=== PATIENT | female | born 1960 | race Two or more races ===

== ENCOUNTER 2024-03-30 19:22 | Emergency (ER) | payer MEDICAID ==
[~2024-03-30] VITALS: Ht 152.4 cm; Wt 75.0 kg
[2024-03-30 20:18] LABS: Urine Bacteria None Seen /hpf (None Seen); Urine Blood Negative /uL (Negative); Urine Clarity Clear (Clear); Urine Color Light-Yellow (Yellow); Urine Protein, UAD Negative (Negative); Urine Specific Gravity 1.021 (1.001-1.035); Urine Squamous Epithelial Cell FEW /hpf (<5); Urine Urobilinogen Normal (Negative); Urine WBC 2 /HPF (0-5); Urine pH 5.5 (5.0-9.0)
[2024-03-30 20:40] LABS: COVID19 ANTIGEN SOFIA FIA NEGATIVE (NEGATIVE)
[2024-03-30 20:41] LABS: Rapid Influenza A Negative (Negative); Rapid Influenza B Negative (Negative)
[2024-03-30] MEDS ORDERED: NITROFURANTOIN 100 mg CAP PO ONE (21:45)
[2024-03-30 23:40] VITALS: PULSE 115; RESP 20; TEMP 98.3; O2SAT 94
[2024-03-30] MEDS: ACETAMINOPHEN 325 MG TAB PO ONE (23:45)
[2024-03-30] MEDS: cefTRIAXone SOD 1,000 MG VL IM ONE (23:55)
[2024-03-31] MEDS ORDERED: ACET500T58 PO (00:23)
[2024-03-31] MEDS ORDERED: ZOFR4T PO (00:23)
[2024-03-31] MEDS ORDERED: NITR-87 PO (00:23)
--- NOTE | 2024-03-31 00:23 | ED.PDOC ---
History of Present Illness HPI Comments This patient is a 63-year-old morbidly obese female who arrives to the ED today with complaints of flu-like symptoms including body aches, fever as well as back pain concerns for the past two days. Patient believes she may have a urinary tract infection as well. Patient denies any recent travel or new food sources. At arrival, patient was febrile, tachycardic and hypertensive. Chief Complaint: Flu like Time Seen by MD: 19:53 Reviewed Notes: Nurses Notes Allergies: Coded Allergies: No Known Drug Allergy (Verified Allergy, Unknown, 03/30/24) Information Source: Patient Mode of Arrival: Ambulatory Severity: Moderate Timing: Days Duration: Since onset Prehospital treatment: None Past Medical History PAST MEDICAL HISTORY: Denies Surgical History: Denies all surgeries GREEN MARKETER History: No Pertinent GREEN MARKETER History Family History Family History: Reviewed,noncontributory to illness, No family hx of Cancer, No family hx of DM, No family hx of Heart janusz, No family hx of HTN, No family hx ofKidney janusz, No family hx of Liver janusz, No family hx of Lung janusz, No family hx of Stroke Social History Smoker: Non-Smoker Alcohol: Denies ETOH Use Drugs: Denies Drug Use Lives In: Home Constitutional: reports: fatigue, fever, weakness; denies: chills, diaphoresis, malaise, sweats, others EENTM: denies: blurred vision, double vision, ear bleeding, ear discharge, ear drainage, ear pain, ear ringing, eye pain, eye redness, hearing loss, mouth pain, mouth swelling, nasal discharge, nose bleeding, nose congestion, nose pain, photophobia, tearing, throat pain, throat swelling, voice changes, others Respiratory: denies: cough, hemoptysis, orthopnea, SOB at rest, shortness of breath, SOB with excertion, stridor, wheezing, others Cardiovascular: denies: chest pain, dizzy spells, diaphoresis, Dyspnea on exertion, edema, irregular heart beat, left arm pain, lightheadedness, palpitations, PND, syncope, others Gastrointestinal: denies: abdomen distended, abdominal pain, blood streaked bowels, constipated, diarrhea, dysphagia, difficulty swallowing, hematemesis, melena, nausea, poor appetite, poor fluid intake, rectal bleeding, rectal pain, vomiting, others Genitourinary: denies: abnormal vagina bleeding, burning, dyspareunia, dysuria, flank pain, frequency, hematuria, incontinence, pain, , vagina discharge, urgency, others Neurological: denies: dizziness, fainting, headache, left sided numbness, left sided weakness, numbness, paresthesia, pre-existing deficit, right sided numbness, right sided weakness, seizure, speech problems, tingling, tremors, weakness, others Musculoskeletal: reports: back pain; denies: gout, joint pain, joint swelling, muscle pain, muscle stiffness, neck pain, others Integumetry: denies: bruises, change in color, change in hair/nails, dryness, laceration, lesions, lumps, rash, wounds, others Allergic/Immunocompromised: denies: Difficulty Healing, Frequent Infections, Hives, Itching, others Hematologic/Lymphatic: denies: anemia, blood clots, easy bleeding, easy bruising, swollen glands, others Endocrine: denies: excessive hunger, excessive sweating, excessive thirst, excessive urination, flushing, intolerance to cold, intolerance to heat, unexplained weight gain, unexplained weight loss, others Psychiatric: denies: anxiety, bipolar disorder, depression, hopeless, panic disorder, schizophrenia, sleepless, suicidal, others Physical Exam General Appearance: Moderate Distress (Patient presents as a ugbh-gp-lgwundehoq ill 63-year-old female.), Obese HEENT: Normal ENT Inspection, Pharynx Normal, TMs Normal Neck: Full Range of Motion, Non-Tender, Normal, Normal Inspection Respiratory: Chest Non-Tender, Lungs Clear, No Accessory Muscle Use, No Respiratory Distress, Normal Breath Sounds Cardiovascular: No Edema, No JVD, No Murmur, No Gallop, Normal Peripheral Pulses, Regular Rate/Rhythm Breast Exam: Deferred Gastrointestinal: No Organomegaly, Non Tender, No Pulsatile Mass, Normal Bowel Sounds, Soft Genitalia: Deferred Pelvic: Deferred Rectal: Deferred Extremities: Normal capillary refill, Normal inspection, Normal range of motion, Non-tender Musculoskeletal : Location: Bilateral Extremity Location: Back (Diffuse low back tenderness to palpation. No signs of trauma. Pain is described as achy. No CVA tenderness) Apperance: Normal Neurologic: Alert, No Motor Deficits, Normal Affect, Normal Mood, No Sensory Deficits Cerebellar Function: Normal Reflexes: Normal Skin: Dry, Normal Color, Warm Lymphatic: No Adenopathy Was a procedure done? Was a procedure done?: No Differential Dx Considerations may include: UTI, COVID-19, influenza a/B, viral illness X-Ray, Labs, Meds, VS Vital Signs Date Time Temp Pulse Resp B/P (MAP) Pulse Ox O2 Delivery O2 Flow Rate FiO2 03/30/24 23:40 115 20 94 Room Air* 0 21 03/30/24 23:40 98.3 115 20 166/96 (119) 94 98.3 03/30/24 19:35 101.8 129 20 150/105 (120) 95 03/30/24 19:35 18 95 Room Air 0 Lab Test 03/30/24 19:53 03/30/24 19:45 Range/Units Urine Color Light-yellow Yellow Urine Clarity Clear Clear Urine pH 5.5 5.0-9.0 Urine Specific [place] 1.021 1.001-1.035 Urine Protein Negative Negative Urine Ketones Negative Negative Urine Blood Negative Negative /uL Urine Nitrite Negative Negative Urine Bilirubin Negative Negative Urine Urobilinogen Normal Negative mg/dL Urine Leukocyte Esterase 1+ Negative /uL Urine RBC 1 0 - 4 /hpf Urine Microscopic WBC 2 0-5 /HPF Urine Squamous Epithelial Cells Few <5 /hpf Urine Bacteria None seen None Seen /hpf Urine Glucose Normal Normal mg/dL Influenza Type A Antigen Negative Negative Influenza Type B Antigen Negative Negative SARS-CoV-2 Antigen (Rapid) Negative NEGATIVE Current Medications Medications (Trade) Dose Ordered Sig/Michael Route Start Time Stop Time Status Last Admin Acetaminophen (Tylenol Tablet) 1,000 mg ONCE ONCE PO 03/30/24 21:45 03/30/24 21:46 DC 03/30/24 23:45 Ceftriaxone Sodium (Rocephin) 1,000 mg ONCE ONCE IM 03/31/24 00:00 03/31/24 00:01 DC 03/30/24 23:55 X-Ray, Labs, Meds, VS Comment All studies performed the ED were evaluated by me personally. Swabs studies were unremarkable for any COVID or influenza. Urine revealed a mild urinary tract infection. I believe the patient is suffering from a viral illness as well as her urinary tract infection. Advised patient utilize antibiotics as directed as well as additional medication as needed. Good hydration and healthy nutrition throughout. Time of 1ST Reevaluation: 00:20 Reevaluation 1ST: Improved Consultation: PCP Patient Education/Counseling: Diagnosis, Treatment Family Education/Counseling: Diagnosis, Treatment Departure 1 Departure Time of Disposition: 00:21 Impression: Primary Impression: Viral illness Additional Impression: UTI (urinary tract infection) Disposition: HOME / SELF CARE / HOMELESS Condition: Stable Additional Instructions: Advised patient utilize antibiotics as directed until completion as well as additional medication as needed. Patient should practice good hydration and healthy nutrition throughout illness event. e-Prescriptions Ondansetron Odt 4MG Tab (ZOFRAN PO) 4 Mg Tb 4 MG PO Q6HP PRN, #15 TAB ODT TAB-DISSOLVE IN MOUTH, THEN SWALLOW Prov: YULISA COLON PAC 03/31/24 Acetaminophen (Acetaminophen) 500 Mg Tab 500 MG PO Q4HP PRN, #30 TAB Prov: YULISA COLON PAC 03/31/24 Nitrofurantoin Monohydrate Mac (Macrobid) 100 Mg Cap 100 MG PO BID for 5 Days, #10 CAP Prov: YULISA COLON 03/31/24 Discharged With: Self, Friend Critical Care Note Critical Care Time?: No Stability Stability form required: No Heart Score Heart Score: Heart Score Response (Comments) Value History N/A 0 EKG N/A 0 Age N/A 0 Risk Factors N/A 0 Troponin N/A 0 Total 0 YULISA COLON PAC Mar 31, 2024 00:23
[2024-03-31 01:11] VITALS: BP 147/83; PULSE 109; RESP 18; O2SAT 96
[2024-03-31] MEDS: cloNIDine HCL 0.1 MG TAB PO ONE (01:11)
== END 2024-03-31 01:12 | disposition home or self-care (01) ==
LOC: ER 19:22
DX: B34.9 Viral infection, unspecified (principal); N39.0 Urinary tract infection, site not specified; Z20.822 Contact with and (suspected) exposure to COVID-19
CPT/HCPCS: 36415; 81001; 87426; 87804; 96372; 99283; J0696

== ENCOUNTER 2024-05-30 01:53 | Inpatient (IN) | payer MEDICAID ==
[~2024-05-30] VITALS: Ht 154.9 cm; Wt 70.6 kg
[2024-05-30] VITALS (8 sets, daily range): BP systolic 91–146; BP diastolic 36–78; PULSE 68–93; RESP 12–18; TEMP 97–98.1; O2SAT 92–98
[~2024-05-30 01:53] MED LIST: ACET500T58 PO; NITR-87 PO; ZOFR4T PO
--- NOTE | 2024-05-30 02:04 | ECG ---
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
--- NOTE | 2024-05-30 02:15 | ED.PDOC ---
HPI Comments 63 year old female presents to the ED via EMS with a chief complaint of chest pain onset today (05/30/24) around 01:00. Patient states she was asleep, woke up due to chest pain described as a pressure/burning sensation radiating to epigastric region as well as shortness of breath and nausea. Per EMS, upon arrival patient was tachycardiac 105 bpm, hypertensive 143/99, blood sugar 121. Patient experienced MD December 2023, states pain is similar. PMHx HTN, CHF, MD. Denies headache, blurry vision, vomiting, diarrhea, constipation, cough, congestion, fevers, chills. No other symptoms or modifying factors present at this time. Chief Complaint: Chest Pain Time Seen by MD: 02:06 Reviewed Notes: Medications, Allergies Allergies: Coded Allergies: No Known Drug Allergy (Verified Allergy, Unknown, 03/30/24) Home Meds Active Scripts Ondansetron Odt 4MG Tab (ZOFRAN PO) 4 Mg Tb, 4 MG PO Q6HP PRN, #15 TAB ODT TAB-DISSOLVE IN MOUTH, THEN SWALLOW Prov:YULISA COLON PAC 03/31/24 Acetaminophen (Acetaminophen) 500 Mg Tab, 500 MG PO Q4HP PRN, #30 TAB Prov:YULISA COLON PAC 03/31/24 Nitrofurantoin Monohydrate Mac (Macrobid) 100 Mg Cap, 100 MG PO BID for 5 Days, #10 CAP Prov:YULISA COLON PAC 03/31/24 Information Source: Patient, Emergency Med Personnel Mode of Arrival: EMS Severity: Moderate Timing: Hours Duration: Since onset Prehospital treatment: None Location: Chest (L) Radiation: Abdomen (epigastric ) Quality: Pressure, Burning Onset: While Asleep Cardiac Risk Factors: HTN PE Risk Factors: None History of: Similar pain in past, MD Modifying Factors: Nothing Associated Signs and Symptoms: SOB, Abdominal Pain, N/V Vital Signs Vital Signs Date Time Temp Pulse Resp B/P (MAP) Pulse Ox O2 Delivery O2 Flow Rate FiO2 05/30/24 03:58 79 05/30/24 03:30 98.0 14 138/89 (105) 97 98.0 Physical Exam General: Awake, alert and oriented. No acute distress. Skin: Skin in warm, dry and intact without rashes or lesions. HEENT: The head is normocephalic and atraumatic. Conjunctivae are clear without exudates or hemorrhage. Sclera is non-icteric. Neck: Normal range of motion. No JVD. Cardiac: Regular rate Respiratory: No signs of respiratory distress. No Stridor. Extremities: Upper and lower extremities are atraumatic in appearance without deformity. Neurological: The patient is awake, alert and oriented to person, place, and t carie with normal speech. Speech is clear. There is no facial asymmetry. Psychiatric: Appropriate mood and affect. Good judgement and insight. Review of Systems: As stated HPI Past Medical History PAST MEDICAL HISTORY: CHF, HTN, MD Surgical History: Denies all surgeries AIR BATTLE MANAGER History: No Pertinent AIR BATTLE MANAGER History Family History Family History: Reviewed,noncontributory to illness, No family hx of Cancer, No family hx of DM, No family hx of Heart ajnusz, No family hx of HTN, No family hx ofKidney janusz, No family hx of Liver janusz, No family hx of Lung janusz, No family hx of Stroke Social History Smoker: Non-Smoker Alcohol: Denies ETOH Use Drugs: Denies Drug Use Lives In: Home EKG EKG : Pulse Rate (adult): 89 [place]: RAD Cardiac Rhythm: NSR ST: Nonsp Comments No STEMI Was a procedure done? Was a procedure done?: No CP Differential Dx Differential Diagnosis: Other (Differential diagnoses considered include acute ischemic coronary syndrome, aortic dissection, cardiac tamponade, mediastinitis, pulmonary embolus, pneumothorax, tension pneumothorax, esophageal rupture, coronary artery vasospasm, myocarditis, pericarditis, pneumonia, pulmonary edema, esophageal tear, pancreatitis, aortic stenosis, dilated cardiomyopathy, hypertrophic cardiomyopathy, mitral valve prolapse, malignancy, pleuritis, pneumomediastinum, primary pulmonary hypertension, cholecystitis, esophageal spasm, esophagus, gastritis, GERD, peptic ulcer disease, costochondritis, fibromyalgia, rib fracture, herpes zoster, radicular syndromes, thoracic outlet syndrome, somatization.) X-Ray, Labs, Meds, VS Vital Signs Date Time Temp Pulse Resp B/P (MAP) Pulse Ox O2 Delivery O2 Flow Rate FiO2 05/30/24 03:58 79 05/30/24 03:30 98.0 79 14 138/89 (105) 97 98.0 05/30/24 03:29 88 17 18/89 05/30/24 02:48 95 05/30/24 02:15 89 05/30/24 01:55 89 05/30/24 01:55 98.0 88 22 143/99 (114) 95 98.0 Lab Test 05/30/24 03:10 05/30/24 02:07 Range/Units Troponin I High Sensitivity Pending 31 </=34 ng/L White Blood Count 7.7 4.4-10.8 10^3/uL Red Blood Count 4.38 4.0-5.20 10^6/uL Hemoglobin 13.9 12.2-16.2 g/dL Hematocrit 41.5 36.0-46.0 % Mean Corpuscular Volume 94.6 80.0-100.0 fL Mean Corpuscular Hemoglobin 31.7 28.0-32.0 pg Mean Corpuscular Hemoglobin Concent 33.5 32.0-36.0 g/dL Red Cell Distribution Width 14.2 11.8-14.3 % Platelet Count 230 140-450 10^3/uL Mean Platelet Volume 7.5 6.9-10.8 fL Neutrophils (%) (Auto) 65.9 37.0-80.0 % Lymphocytes (%) (Auto) 22.0 10.0-50.0 % Monocytes (%) (Auto) 7.3 0.0-12.0 % Eosinophils (%) (Auto) 4.0 0.0-7.0 % Basophils (%) (Auto) 0.8 0.0-2.0 % Neutrophils # (Auto) 5.1 1.6-8.6 10 ^3/uL Lymphocytes # (Auto) 1.7 0.4-5.4 10 ^3/uL Monocytes # (Auto) 0.6 0-1.3 10 ^3/uL Eosinophils # (Auto) 0.3 0-0.8 10 ^3/uL Basophils # (Auto) 0.1 0-0.2 10 ^3/uL Nucleated Red Blood Cells 0.0 % Sodium Level 139 136-145 mmol/L Potassium Level 4.4 3.5-5.1 mmol/L Chloride Level 106 98-107 mmol/L Carbon Dioxide Level 26 20-31 mmol/L Anion Gap 7 5-15 Blood Urea Nitrogen 17 9-23 mg/dL Creatinine 0.84 0.550-1.02 mg/dL Glomerular Filtration Rate Calc 79 >90 mL/min BUN/Creatinine Ratio 20.2 H 10.0-20.0 Serum Glucose 121 H 74-106 mg/dL Calcium Level 9.5 8.7-10.4 mg/dL Total Bilirubin 0.2 0.2-1.0 mg/dL Aspartate Amino Transferase (AST) 13 13-40 U/L Alanine Aminotransferase (ALT) 15 7-40 U/L Alkaline Phosphatase 124 H 46-116 U/L B-Type Natriuretic Peptide Pending Total Protein 6.9 5.7-8.2 g/dL Albumin 4.2 3.2-4.8 g/dL Current Medications Medications (Trade) Dose Ordered Sig/Michael Route Start Time Stop Time Status Last Admin Aspirin 324 mg ONCE ONCE PO 05/30/24 02:15 05/30/24 02:17 DC 05/30/24 03:26 Morphine Sulfate 2 mg ONCE ONCE IV 05/30/24 02:15 05/30/24 02:17 DC 05/30/24 03:29 Ondansetron HCl (Zofran) 4 mg ONCE ONCE IV 05/30/24 03:00 05/30/24 03:01 DC 05/30/24 03:27 Images Reviewed?: Images reviewed and evaluated by me (Independent interpretation of chest x-ray: No acute disease) Time of 1ST Reevaluation: 02:36 Reevaluation 1ST: Unchanged Patient Education/Counseling: Other (Need for admission) Family Education/Counseling: No Family Present Departure 1 Departure Time of Disposition: 04:10 Impression: Primary Impression: Chest pain Disposition: ADMITTED INPATIENT Condition: Stable Comments 63-year-old female with coronary artery disease presents with the chest pain. Patient admitted to hospitalist service for further treatment, evaluation and monitoring. Extensive evaluation was performed in attempt to identify or rule out: (See differential diagnosis section) The following tests were ordered, and results were reviewed by me and discussed with patient: (See diagnostic results section) The following test were independently interpreted by me: EKG, chest x-ray I reviewed and agreed with the following test results read by other providers: N/A I reviewed the following notes from the pt's past medical encounters: Visit 03/30/2024 for viral illness Additional information was gathered from interviewing the following independent historians: EMS personnel Discussion of management or test interpretation with external physician/other qualified health senior caregiver: N/A Addressed an acute or chronic illness that poses a threat to life or bodily function: Angina, coronary artery disease Decision regarding hospitalization or escalation of hospital level of care: Risk and benefits of admission for further treatment of patient's condition was considered. Due to patient's current clinical condition, high risk of decline and poor outcome if discharged and need for further inpatient management and monitoring, patient will be admitted to the hospital. Drug therapy requiring intensive monitoring for toxicity: N/A Parenteral controlled substances: IV morphine Decision regarding elective major surgery with identified patient or procedure risk factors: N/A Decision regarding emergency major surgery: N/A Decision not to resuscitate or to de-escalate care because of poor prognosis: N/A Diagnosis or treatment significantly limited by social determinants of health: N/A Critical Care Note Critical Care Time?: No Stability Stability form required: No Heart Score Heart Score: Heart Score Response (Comments) Value History Highly Suspicious 2 EKG Repolarization Disturb 1 Age 45-64 1 Risk Factors >3 or Hx ASHD 2 Troponin Normal limit 0 Total 6 I personally scribed for SHUN LAURENT MD ([email or web address]) on 05/30/24 at 02:15. Electronically submitted by Brooke Garcia ([email or web address]). SHUN LAURENT MD May 30, 2024 02:15
[2024-05-30 02:35] LABS: Basophils # (auto) 0.1 10 ^3/uL (0-0.2); Basophils % (auto) 0.8 % (0.0-2.0); Eosinophils # (auto) 0.3 10 ^3/uL (0-0.8); Hematocrit 41.5 % (36.0-46.0); Hemoglobin 13.9 g/dL (12.2-16.2); Lymphocytes # (auto) 1.7 10 ^3/uL (0.4-5.4); Mean Corpuscular Hemoglobin 31.7 pg (28.0-32.0); Mean Corpuscular Hgb Conc. 33.5 g/dL (32.0-36.0); Mean Corpuscular Volume 94.6 fL (80.0-100.0); Monocytes # (auto) 0.6 10 ^3/uL (0-1.3); Monocytes % (auto) 7.3 % (0.0-12.0); Neutrophils # (auto) 5.1 10 ^3/uL (1.6-8.6); Neutrophils % (auto) 65.9 % (37.0-80.0); Platelet Count (auto) 230 10^3/uL (140-450); Red Blood Cells 4.38 10^6/uL (4.0-5.20); Red Cell Distribution Width 14.2 % (11.8-14.3); White Blood Cell 7.7 10^3/uL (4.4-10.8)
[2024-05-30 03:04] LABS: Alanine Aminotransferase 15 U/L (7-40); Albumin 4.2 g/dL (3.2-4.8); Anion Gap 7 (5-15); BUN/Creatinine Ratio 20.2 (10.0-20.0); Blood Urea Nitrogen 17 mg/dL (9-23); Calcium 9.5 mg/dL (8.7-10.4); Carbon Dioxide 26 mmol/L (20-31); Chloride 106 mmol/L (98-107); Potassium 4.4 mmol/L (3.5-5.1); Sodium 139 mmol/L (136-145); Total Protein 6.9 g/dL (5.7-8.2)
[2024-05-30 03:06] LABS: Alkaline Phosphatase 124 U/L (46-116); Aspartate Aminotransferase 13 U/L (13-40); Bilirubin, Total 0.2 mg/dL (0.2-1.0); Glucose 121 mg/dL (74-106)
[2024-05-30] MEDS: ASPirin 81 mg TAB PO ONE (03:26)
[2024-05-30] MEDS: ONDANSETRON HCL 4 MG/2 ML VIAL IV ONE (03:27)
[2024-05-30] MEDS: MORPHINE SULFATE INJ 2 MG/ml SYRG IV ONE (03:29)
--- NOTE | 2024-05-30 04:41 | DVH ---
CHEST RADIOGRAPH Indication: cp Technique: Single frontal view of the chest was obtained Comparison: None FINDINGS: Lines and Tubes: None Lungs: No focal consolidation. Pleura: No effusion. No pneumothorax. Cardiomediastinal contours: Unremarkable Bones: No acute osseous abnormality. IMPRESSION: 1. No acute cardiopulmonary disease.
[2024-05-30] MEDS ORDERED: NITROGLYCERIN 0.4 MG SL TAB SL PRN (05:15)
[2024-05-30] MEDS ORDERED: ALBUTEROL SULF 2.5 MG/0.5ML(0.5%) NEB SOLN NEB PRN (05:15)
[2024-05-30] MEDS ORDERED: ACETAMINOPHEN 325 MG TAB PO PRN (05:15)
[2024-05-30] MEDS ORDERED: MORPHINE SULFATE INJ 2 MG/ml SYRG IV PRN (05:15)
--- NOTE | 2024-05-30 05:22 | DVHHP2 ---
History of Present Illness Reason for Visit: Chest pain History of Present Illness 63-year-old female presents for evaluation of chest pain. Patient reports waking up today at one in the morning with substernal/epigastric pressure-like pain with associated shortness for breath and nausea. Denies cough or fever. Patient currently rates the pain at 6/10 intensity. Reports having an IN last year and states the symptoms are similar to that episode. Denies any other acute complaints at the moment. Past Medical History IN, hypertension, CHF Past Surgical History Denies Family History Denies Smoke: No ALCOHOL: none Drugs: None Lives: with Family Review of Systems Review of Systems Review of systems are currently negative otherwise addressed in HPI. Allergies: Coded Allergies: No Known Drug Allergy (Verified Allergy, Unknown, 03/30/24) Medications Current Medications Medications Dose Ordered Sig/Michael Route Start Time Stop Time Status Last Admin Dose Admin Aspirin 81 mg DAILY PO 05/30/24 10:00 UNV Atorvastatin Calcium 40 mg HS PO 05/30/24 22:00 UNV Furosemide 40 mg DAILY PO 05/30/24 10:00 UNV Albuterol 2.5 mg Q6HPRN PRN NEB 05/30/24 05:15 UNV Metoprolol Succinate 50 mg DAILY PO 05/30/24 10:00 UNV Lisinopril 5 mg DAILY PO 05/30/24 10:00 UNV Pantoprazole Sodium 40 mg DAILY@0600 PO 05/30/24 06:00 UNV Ondansetron HCl 4 mg Q4HP PRN IV 05/30/24 05:15 UNV Enoxaparin Sodium 40 mg DAILY SC 05/30/24 10:00 UNV Acetaminophen 650 mg Q6HP PRN PO 05/30/24 05:15 UNV Nitroglycerin 0.4 mg Q5MINP PRN SL 05/30/24 05:15 UNV Morphine Sulfate 2 mg Q30M PRN IV 05/30/24 05:15 UNV Exam Vital Signs Vital Signs Date Time Temp Pulse Resp B/P (MAP) Pulse Ox O2 Delivery O2 Flow Rate FiO2 05/30/24 04:45 68 18 96 Nasal Cannula* 3 32 05/30/24 03:30 98.0 138/89 (105) 98.0 Exam Gen: 63-year-old female in mild distress, obese Skin: Warm, dry, normal color and texture, no rash. HEENT: Normocephalic atraumatic, mucous membranes moist and pink. Neck: Cervical and supraclavicular nodes normal without enlargement, trachea is midline, thyroid gland is normal without masses. Pulmonary: Clear to auscultation and percussion bilaterally. Cardiac: Regular rate and rhythm. No murmur Abdomen: Soft, nontender, nondistended, bowel sounds present all 4 quadrants, no guarding, no rigidity, no organomegaly. Extremities: No cyanosis, clubbing, no edema Neuro: Cranial nerves II through XII grossly intact, normal affect and speech, no focal motor deficits. Labs/Xrays ORDERING PHYSICIAN: SHUN LAURENT MD PROCEDURE(s): CXR1 - CHEST XRAY 1 VIEW REASON: cp ORDER NUMBER(s): [id number], ACCESSION NUMBER(s): [id number] CHEST RADIOGRAPH Indication: cp Technique: Single frontal view of the chest was obtained Comparison: None FINDINGS: Lines and Tubes: None Lungs: No focal consolidation. Pleura: No effusion. No pneumothorax. Cardiomediastinal contours: Unremarkable Bones: No acute osseous abnormality. IMPRESSION: 1. No acute cardiopulmonary disease. Labs Test 05/30/24 03:10 05/30/24 02:07 Range/Units Troponin I High Sensitivity 28 </=34 ng/L White Blood Count 7.7 4.4-10.8 10^3/uL Red Blood Count 4.38 4.0-5.20 10^6/uL Hemoglobin 13.9 12.2-16.2 g/dL Hematocrit 41.5 36.0-46.0 % Mean Corpuscular Volume 94.6 80.0-100.0 fL Mean Corpuscular Hemoglobin 31.7 28.0-32.0 pg Mean Corpuscular Hemoglobin Concent 33.5 32.0-36.0 g/dL Red Cell Distribution Width 14.2 11.8-14.3 % Platelet Count 230 140-450 10^3/uL Mean Platelet Volume 7.5 6.9-10.8 fL Neutrophils (%) (Auto) 65.9 37.0-80.0 % Lymphocytes (%) (Auto) 22.0 10.0-50.0 % Monocytes (%) (Auto) 7.3 0.0-12.0 % Eosinophils (%) (Auto) 4.0 0.0-7.0 % Basophils (%) (Auto) 0.8 0.0-2.0 % Neutrophils # (Auto) 5.1 1.6-8.6 10 ^3/uL Lymphocytes # (Auto) 1.7 0.4-5.4 10 ^3/uL Monocytes # (Auto) 0.6 0-1.3 10 ^3/uL Eosinophils # (Auto) 0.3 0-0.8 10 ^3/uL Basophils # (Auto) 0.1 0-0.2 10 ^3/uL Nucleated Red Blood Cells 0.0 % Sodium Level 139 136-145 mmol/L Potassium Level 4.4 3.5-5.1 mmol/L Chloride Level 106 98-107 mmol/L Carbon Dioxide Level 26 20-31 mmol/L Anion Gap 7 5-15 Blood Urea Nitrogen 17 9-23 mg/dL Creatinine 0.84 0.550-1.02 mg/dL Glomerular Filtration Rate Calc 79 >90 mL/min BUN/Creatinine Ratio 20.2 H 10.0-20.0 Serum Glucose 121 H 74-106 mg/dL Calcium Level 9.5 8.7-10.4 mg/dL Total Bilirubin 0.2 0.2-1.0 mg/dL Aspartate Amino Transferase (AST) 13 13-40 U/L Alanine Aminotransferase (ALT) 15 7-40 U/L Alkaline Phosphatase 124 H 46-116 U/L B-Type Natriuretic Peptide 34.48 0-100 pg/mL Total Protein 6.9 5.7-8.2 g/dL Albumin 4.2 3.2-4.8 g/dL Assessment/Plan Assessment/Plan Assessment Chest pain rule out ACS Hypertension History of IN Plan Admit the patient to telemetry to the hospitalist ACS protocol Resume home medications Continue treatment per orders. Plan discussed with: Patient My Orders Orders - NIKHIL JACINTO Procedure Category Date Status Time Aspirin Tablet PHA 05/30/24 Logged 10:00 Atorvastatin (Lipitor) PHA 05/30/24 Logged 22:00 Furosemide Tablet PHA 05/30/24 Logged (Lasix Tablet) 10:00 Albuterol Medneb PHA 05/30/24 Logged (Ventolin Medneb) 05:15 Metoprolol Xl PHA 05/30/24 Logged Succinate (Toprol Xl) 10:00 Lisinopril Tablet PHA 05/30/24 Logged (Zestril Tablet) 10:00 * Cardiology Consult CONS 05/30/24 Transmitted 05:11 Thyroid Stimulating LAB 05/30/24 Logged Hormone 05:11 Lipid Panel LAB 05/30/24 Logged 05:11 Pantoprazole Tablet PHA 05/30/24 Logged (Protonix Tablet) 06:00 Admit ADMIT 05/30/24 Transmitted 05:11 Ondansetron Hcl PHA 05/30/24 Logged (Zofran) 05:15 Enoxaparin Sodium PHA 05/30/24 Logged (Lovenox) 10:00 Cardiac DIET 05/30/24 Transmitted Diet-2gna,Lofat,Lochol Breakfast Echo 2d Mode Cardiac US 05/30/24 Logged DOP 05:11 Condition: Fair [facility] 05/30/24 In Process 05:11 Acetaminophen Tablet [facility] 05/30/24 Logged (Tylenol Tablet) 05:15 Bedrest With Bathroom [facility] 05/30/24 In Process Privileg 05:11 Nitroglycerin [facility] 05/30/24 Logged Sublingual (Ntrostat 05:15 Morphine Sulfate PHA 05/30/24 Logged Injection 05:15 Stat Ekg For Chest [facility] 05/30/24 In Process Pain 05:11 Notify Md Of Changes [facility] 05/30/24 In Process From Base 05:11 Applied Research Director For [facility] 05/30/24 In Process 24 Hours 05:11 Emergency Dysrhythmia [facility] 05/30/24 In Process Protocol 05:11 Rhythm Strips Once [facility] 05/30/24 In Process Every Shift 05:11 Oxygen By Nasal RT 05/30/24 Transmitted Cannula 05:11 Date of Service: May 30, 2024 Billing Provider: NIKHIL JACINTO Common Visit Codes: [id number] INP/OBS CARE (HIGH) NIKHIL JACINTO May 30, 2024 05:22
[2024-05-30] MEDS: PANTOPRAZOLE 40 MG TAB PO SCH (06:32)
--- NOTE | 2024-05-30 06:44 | ECG ---
[facility] Test Date: 2024-05-30 Test Time: 02:48:56 Pat Name: PAXTON RODRIGUEZ Department: ED Room: 0280T Gender: F Clinic Physician: ER : [id number] Requested By: EMERGENCY EMERGENCY Order Number: [id number] Reading MD: Emory Car Measurements Intervals Rowe Rate: 95 P: 90 MA: 144 QRS: 103 QRSD: 92 T: 66 QT: 394 QTc: 496 Interpretive Statements Sinus rhythm Multiple ventricular premature complexes Right axis deviation ST elevation, consider inferior injury Borderline prolonged QT interval Electronically Signed On 05-31-2024 13:44:01 PDT by Emory Car Please click the below link to view image of tracing.
[2024-05-30 06:46] LABS: LDL Cholesterol 105 mg/dL (< 100); Triglycerides 156 mg/dL (< 150)
[2024-05-30 06:47] LABS: Cholesterol 173 mg/dL (< 200); HDL Cholesterol 51 mg/dL (40-59)
[2024-05-30] MEDS: ASPirin 81 mg TAB PO SCH (09:19)
[2024-05-30] MEDS: ENOXAPARIN SOD 40 MG/0.4 ML SYRINGE SC SCH (09:20)
[2024-05-30] MEDS: LISINOPRIL 5 MG TAB PO SCH (09:21)
[2024-05-30] MEDS: METOPROLOL SUCCINATE XL 50 MG TAB PO SCH (09:22)
[2024-05-30] MEDS: FUROSEMIDE 40 MG TAB PO SCH (09:23)
[2024-05-30] MEDS: ONDANSETRON HCL 4 MG/2 ML VIAL IV PRN (09:23)
--- NOTE | 2024-05-30 10:08 | DVHINCON2 ---
Date Seen: May 30, 2024 Referring Physician KOKO Iniguez Reason for Consultation Chest pain History of Present Illness This is a 63-year-old female patient who presents to the emergency room with chief complaint of abdominal pain and chest pain. The patient reports her symptoms began at approximately 1:00 a.m. this morning. She reports feeling an unprovoked, pressure-like pain to her epigastric area. She states that the pain radiated to her chest. Associated symptoms include shortness of breath and lightheadedness. Initial twelve lead electrocardiogram reveals normal sinus rhythm with PACs and PVCs and nonspecific ST segment changes to septal leads. Initial troponin level of 31ng/L with flat trend thereafter. Significant past medical history includes congestive heart failure, history of myocardial infarction, hypertension, dyslipidemia, frequent urinary tract infection, anxiety, previous methamphetamine use, tobacco use and obesity. The patient reports that she was diagnosed with a myocardial infarction in December of 2023. At that time, she states that she was seen at [facility] where she underwent a coronary angiogram without any catheter based intervention. She states that since then she has followed up with a right of way appraiser at "[facility]", by the name of . Past Medical History Past medical history reviewed. No other significant than mentioned above. Past Surgical History Cholecystectomy Family History Family history reviewed. Social History Patient has a 21 pack-year history, smokes approximately half a pack per day Patient admits to previous methamphetamine use, states that the last time being in December 2023. Toxicology positive amphetamines on this admission She denies any alcohol use Allergies: Coded Allergies: No Known Drug Allergy (Verified Allergy, Unknown, 03/30/24) Home Meds Reported Medications Atorvastatin Calcium (ATORVASTATIN CALCIUM) 40 Mg Tab, 1 TAB PO DAILY 05/31/24 Aspirin (Aspirin) 81 Mg Chw, 1 TAB PO DAILY 05/31/24 Fluoxetine Hcl (Fluoxetine Hcl) 10 Mg Cap, 10 MG PO DAILY for 30 Days, MG 05/30/24 Home Meds Home medications reviewed. Current Medications Current Medications Medications (Trade) Dose Ordered Sig/Michael Route PRN Reason Start Time Stop Time Status Last Admin Aspirin 81 mg DAILY PO 05/30/24 10:00 05/30/24 09:19 Atorvastatin Calcium (Lipitor) 40 mg HS PO 05/30/24 22:00 Furosemide (Lasix Tablet) 40 mg DAILY PO 05/30/24 10:00 05/30/24 09:23 Albuterol (Ventolin Medneb) 2.5 mg Q6HPRN PRN NEB SHORTNESS OF BREATH 05/30/24 05:15 Metoprolol Succinate (Toprol Xl) 50 mg DAILY PO 05/30/24 10:00 Lisinopril (Zestril Tablet) 5 mg DAILY PO 05/30/24 10:00 Pantoprazole Sodium (Protonix Tablet) 40 mg DAILY@0600 PO 05/30/24 06:00 05/30/24 06:32 Ondansetron HCl (Zofran) 4 mg Q4HP PRN IV NAUSEA / VOMITING 05/30/24 05:15 05/30/24 09:23 Enoxaparin Sodium (Lovenox) 40 mg DAILY SC 05/30/24 10:00 05/30/24 09:20 Acetaminophen (Tylenol Tablet) 650 mg Q6HP PRN PO PAIN SCALE 1-3 OR TEMP>100.4 05/30/24 05:15 Nitroglycerin (Ntrostat Sublingual) 0.4 mg Q5MINP PRN SL FOR CHEST PAIN 05/30/24 05:15 Morphine Sulfate 2 mg Q30M PRN IV FOR CHEST PAIN 05/30/24 05:15 Review of Systems Constitutional: No symptom reported Ears, Nose, & Throat: No symptom reported Eyes: No symptom reported Neurological: No symptoms reported Pulmonary/Respiratory: Shortness of breath Cardiovascular: Chest pain Gastrointestinal: Abdominal pain, nausea Genitourinary: No symptom reported Musculoskeletal: No symptom reported Skin: No symptom reported Psychiatric: No symptom reported Endocrine: No symptom reported Hematologic/Lymphatic: No symptom reported Vital Signs Vital Signs Date Time Temp Pulse Resp B/P (MAP) Pulse Ox O2 Delivery O2 Flow Rate FiO2 05/30/24 09:23 112/52 05/30/24 09:22 75 05/30/24 08:01 98.1 16 96 98.1 05/30/24 07:45 Nasal Cannula 2.0 05/30/24 07:45 28 Physical Exam General Appearance: Cooperative. Obese Pulmonary/Respiratory: Clear, bilateral breaths sounds. Cardiovascular/Chest: Regular rate and rhythm. Peripheral Pulses: 2+ Radial (R). 2+ Radial (L). 2+ Pedal (R). 2+ Pedal (L) Abdominal Exam: Normal bowel sounds. Ankle Exam: Negative ankle edema Lower extremities: Negative lower extremity edema Neuro/Mental Status: A/OX4, coherent. Thoughts/Psych: Normal thought pattern. Appropriate mood and affect. Good judgment and insight. Appearance: No acute distress. Skin Exam: Normal inspection. Normal color. Warm and dry. Labs/Diagnostic Data Labs Test 05/30/24 05:10 05/30/24 02:07 Range/Units Hemoglobin A1c 5.7 <5.7 % A1C Magnesium Level 2.0 1.6-2.6 mg/dL Troponin I High Sensitivity 28 </=34 ng/L White Blood Count 7.7 4.4-10.8 10^3/uL Red Blood Count 4.38 4.0-5.20 10^6/uL Hemoglobin 13.9 12.2-16.2 g/dL Hematocrit 41.5 36.0-46.0 % Mean Corpuscular Volume 94.6 80.0-100.0 fL Mean Corpuscular Hemoglobin 31.7 28.0-32.0 pg Mean Corpuscular Hemoglobin Concent 33.5 32.0-36.0 g/dL Red Cell Distribution Width 14.2 11.8-14.3 % Platelet Count 230 140-450 10^3/uL Mean Platelet Volume 7.5 6.9-10.8 fL Neutrophils (%) (Auto) 65.9 37.0-80.0 % Lymphocytes (%) (Auto) 22.0 10.0-50.0 % Monocytes (%) (Auto) 7.3 0.0-12.0 % Eosinophils (%) (Auto) 4.0 0.0-7.0 % Basophils (%) (Auto) 0.8 0.0-2.0 % Neutrophils # (Auto) 5.1 1.6-8.6 10 ^3/uL Lymphocytes # (Auto) 1.7 0.4-5.4 10 ^3/uL Monocytes # (Auto) 0.6 0-1.3 10 ^3/uL Eosinophils # (Auto) 0.3 0-0.8 10 ^3/uL Basophils # (Auto) 0.1 0-0.2 10 ^3/uL Nucleated Red Blood Cells 0.0 % Sodium Level 139 136-145 mmol/L Potassium Level 4.4 3.5-5.1 mmol/L Chloride Level 106 98-107 mmol/L Carbon Dioxide Level 26 20-31 mmol/L Anion Gap 7 5-15 Blood Urea Nitrogen 17 9-23 mg/dL Creatinine 0.84 0.550-1.02 mg/dL Glomerular Filtration Rate Calc 79 >90 mL/min BUN/Creatinine Ratio 20.2 H 10.0-20.0 Serum Glucose 121 H 74-106 mg/dL Calcium Level 9.5 8.7-10.4 mg/dL Total Bilirubin 0.2 0.2-1.0 mg/dL Aspartate Amino Transferase (AST) 13 13-40 U/L Alanine Aminotransferase (ALT) 15 7-40 U/L Alkaline Phosphatase 124 H 46-116 U/L B-Type Natriuretic Peptide 34.48 0-100 pg/mL Total Protein 6.9 5.7-8.2 g/dL Albumin 4.2 3.2-4.8 g/dL Triglycerides Level 156 H < 150 mg/dL Cholesterol Level 173 < 200 mg/dL LDL Cholesterol 105 H < 100 mg/dL HDL Cholesterol 51 40-59 mg/dL Thyroid Stimulating Hormone (TSH) 4.12 0.55-4.78 uIU/mL Assessment Chest pain, likely noncardiac Hypertension Dyslipidemia History myocardial infarction History of methamphetamine use Tobacco use Obesity Plan/Recommendation We will continue with the following plan/recommendations (Dr. Car): Case discussed with . Transthoracic echocardiogram reveals EF 55%. The patient recently underwent a coronary angiogram with left heart catheterization without catheter based intervention in December 2023 at [facility]. At this time, we will continue with medical management. Continue with antihypertensive medication and lipid-lowering agent. The patient complains of abdominal pain at time of assessment. Primary care team to consider further imaging and workup of abdominal pain. There is no further inpatient cardiac workup indicated at this time. Thank you for allowing us to care for this patient. Please call with any questions or concerns. Critical c are time spent: 42 minutes This medical document was created using an electronic medical record system with voice recognition software and computerized dictation system. Although this document has been carefully reviewed, there might still be some phonetic and typographical errors. Occasional wrong-word or ``sound-alike substitutions may have occurred due to the inherent limitations of voice recognition software. These areas are purely typographical due to imperfections of the software pro grams and do not reflect any compromise in the patient's medical care. Please read the chart carefully and recognize, using context, where these substitutions have occurred. Plan discussed with: Patient NYHA Physical activity limitations: NA Date of Service: May 30, 2024 Billing Provider: INEZ REEDER Cardiology Common Codes: [id number] INP/OBS CARE (High) Cardiology Consultation Codes: [id number] CONSULT <45MIN INEZ REEDER May 30, 2024 10:08
[2024-05-30 12:10] LABS: Opiate Scree,Urine Neg (NEGATIVE)
[2024-05-30 12:13] LABS: Amphetamine Screen, Urine Pos (NEGATIVE); Barbiturate Scree,Urine Neg (NEGATIVE); Benzodiazephine Screen, Urine Neg (NEGATIVE); Cannabinoid Screen, Urine Neg (NEGATIVE); Cocaine Screen, Urine Neg (NEGATIVE); Phencyclidine Screen, Urine Neg (NEGATIVE)
[2024-05-30] MEDS ORDERED: FLUO-126 PO (12:15)
--- NOTE | 2024-05-30 13:06 | DVHPN2 ---
Reviewed: Care Plan, H&P, Labs, Medications, Previous Orders, Radiology Changes from previous H/P or p: No Changes Objective Vitals Vital Signs Date Time Temp Pulse Resp B/P (MAP) Pulse Ox O2 Delivery O2 Flow Rate FiO2 05/30/24 12:16 97.6 83 14 91/36 (54) 95 97.6 05/30/24 07:45 2.0 28 05/30/24 07:45 Nasal Cannula Medications Current Medications Medications Dose Ordered Sig/Michael Route Start Time Stop Time Status Last Admin Dose Admin Aspirin 81 mg DAILY PO 05/30/24 10:00 05/30/24 09:19 81 MG Atorvastatin Calcium 40 mg HS PO 05/30/24 22:00 Furosemide 40 mg DAILY PO 05/30/24 10:00 05/30/24 09:23 40 MG Albuterol 2.5 mg Q6HPRN PRN NEB 05/30/24 05:15 Metoprolol Succinate 50 mg DAILY PO 05/30/24 10:00 Lisinopril 5 mg DAILY PO 05/30/24 10:00 Pantoprazole Sodium 40 mg DAILY@0600 PO 05/30/24 06:00 05/30/24 06:32 40 MG Ondansetron HCl 4 mg Q4HP PRN IV 05/30/24 05:15 05/30/24 09:23 4 MG Enoxaparin Sodium 40 mg DAILY SC 05/30/24 10:00 05/30/24 09:20 40 MG Acetaminophen 650 mg Q6HP PRN PO 05/30/24 05:15 Nitroglycerin 0.4 mg Q5MINP PRN SL 05/30/24 05:15 Morphine Sulfate 2 mg Q30M PRN IV 05/30/24 05:15 Laboratory Results Laboratory Tests 05/30/24 02:07 Chemistry Test 05/30/24 02:07 05/30/24 05:10 Albumin 4.2 g/dL (3.2-4.8) Calcium Level 9.5 mg/dL (8.7-10.4) Total Protein 6.9 g/dL (5.7-8.2) Magnesium Level 2.0 mg/dL (1.6-2.6) Lipid panel Test 05/30/24 02:07 Cholesterol Level 173 mg/dL (< 200) HDL Cholesterol 51 mg/dL (40-59) Triglycerides Level 156 mg/dL (< 150) H Cardiac Markers Test 05/30/24 02:07 B-Type Natriuretic Peptide 34.48 pg/mL (0-100) LFT Test 05/30/24 02:07 Alanine Aminotransferase (ALT) 15 U/L (7-40) Alkaline Phosphatase 124 U/L (46-116) H Aspartate Amino Transferase (AST) 13 U/L (13-40) Total Bilirubin 0.2 mg/dL (0.2-1.0) HgA1c, TSH Test 05/30/24 02:07 05/30/24 05:10 Thyroid Stimulating Hormone (TSH) 4.12 uIU/mL (0.55-4.78) Hemoglobin A1c 5.7 % A1C (<5.7) Labs and/or images reviewed: Labs reviewed by me, Image(s) reviewed by me Assessment/Plan Assessment/Plan Chest pain rule out coronary artery disease: Troponin negative x3 Treatment per ACS protocol, cardiology consult by Dr. Car appreciated Check Urine drug screen Chronic Current amphetamine abuse: Counseling Plan discussed with: Patient Date of Service: May 30, 2024 Billing Provider: TANIA APARICIO MD Common Visit Codes: [id number] INP/OBS CARE(HIGH) TANIA APARICIO MD May 30, 2024 13:06
--- NOTE | 2024-05-30 13:30 | DVHSR ---
APPROVED REPORT EXAM: Two-dimensional and M-mode echocardiogram with Doppler and color Doppler. Blood Pressure: 142/81 mmHg INDICATION Chest Pain RISK FACTORS Height: 5'1", Weight: 165 DIMENSIONS LVDd5.1 (3.8-5.7cm)LA (2D)4.1 (1.9-4.0cm)Aortic Root2.9 (2.0-3.7cm) LVDs3.6 (2.5-4.0cm)LA (MM) (1.9-4.0cm)Aortic Cusp Exc2.0 (1.5-2.0cm) EF (%) 56.0 (55-70%)Rt. Atrium3.3 (1.9-4.0cm)Asc. Aorta3.2 cm IVSd0.7 (0.7-1.1cm)RV (D)3.3 (1.8-2.4cm) PWd1.0 (0.7-1.1cm) Mitral Valve MitralMitral Stenosis E wave0.58m/sMV Mean GR.mmHg A wave0.64m/sMV Peak GR.mmHg E/A ratio0.92D MVAcm2 DECEL [id number] 1/2 Timems Aortic Valve Aortic ValveAortic Stenosis V11.06m/Nancy Mean GR.4mmHg V21.45m/Nancy Peak GR.8mmHg LVOT Diameter1.9 (1.8-2.4cm)Doppler AVA2.07cm2 Pulmonic Valve V21.12m/s Conclusion lvef 55% by viusal estimate normal rv function mild LVH no severe valve abnormaliteis noted left atrium enlarged
[2024-05-30] MEDS: ATORVASTATIN 20 MG TAB PO SCH (22:11)
[2024-05-30] MEDS: FLUoxetine HCL 10 MG CAP PO ONE (23:05)
[2024-05-31] VITALS (9 sets, daily range): BP systolic 102–114; BP diastolic 56–70; PULSE 61–82; RESP 16–19; TEMP 97.5–98.7; O2SAT 94–97
[2024-05-31] MEDS ORDERED: ASPI81CH49 PO (00:07)
[2024-05-31] MEDS ORDERED: ATOR40TA52 PO (00:07)
--- NOTE | 2024-05-31 12:25 | DVHPN2 ---
Reviewed: Care Plan, H&P, Labs, Medications, Previous Orders, Radiology Changes from previous H/P or p: No Changes Objective Vitals Vital Signs Date Time Temp Pulse Resp B/P (MAP) Pulse Ox O2 Delivery O2 Flow Rate FiO2 05/31/24 10:07 107/65 05/31/24 10:00 82 05/31/24 09:36 97 Nasal Cannula 3.0 05/31/24 09:36 32 05/31/24 09:02 98.7 17 98.7 Intake/Output Intake and Output 05/31/24 07:00 Intake Total 240 ml Output Total 100 ml Balance 140 ml Intake Oral 240 ml Output Urine Total 100 ml Medications Current Medications Medications Dose Ordered Sig/Michael Route Start Time Stop Time Status Last Admin Dose Admin Aspirin 81 mg DAILY PO 05/30/24 10:00 05/31/24 10:07 81 MG Atorvastatin Calcium 40 mg HS PO 05/30/24 22:00 05/30/24 22:11 40 MG Furosemide 40 mg DAILY PO 05/30/24 10:00 05/31/24 10:07 40 MG Albuterol 2.5 mg Q6HPRN PRN NEB 05/30/24 05:15 Metoprolol Succinate 50 mg DAILY PO 05/30/24 10:00 Lisinopril 5 mg DAILY PO 05/30/24 10:00 Pantoprazole Sodium 40 mg DAILY@0600 PO 05/30/24 06:00 05/31/24 05:18 40 MG Ondansetron HCl 4 mg Q4HP PRN IV 05/30/24 05:15 05/30/24 09:23 4 MG Enoxaparin Sodium 40 mg DAILY SC 05/30/24 10:00 05/31/24 10:07 40 MG Acetaminophen 650 mg Q6HP PRN PO 05/30/24 05:15 Nitroglycerin 0.4 mg Q5MINP PRN SL 05/30/24 05:15 Morphine Sulfate 2 mg Q30M PRN IV 05/30/24 05:15 Laboratory Results Laboratory Tests 05/30/24 02:07 Labs and/or images reviewed: Labs reviewed by me, Image(s) reviewed by me Assessment/Plan Assessment/Plan Chest pain rule out coronary artery disease: Troponin negative x3 Treatment per ACS protocol, cardiology consult by Dr. Car appreciated, left heart catheterization December 2023 at [facility] normal, echo 55 percent ejection fraction, patient has noncardiac chest pain per Cardiology no further cardiac workup. Urine drug screen positive for amphetamine Chronic Current amphetamine abuse: Counseling Patient complained of some mild epigastric abdominal pain yesterday but she says no pain today Plan discussed with: Patient Date of Service: May 31, 2024 Billing Provider: TANIA APARICIO MD Common Visit Codes: [id number] INP/OBS CARE(HIGH) TANIA APARICIO MD May 31, 2024 12:25
--- NOTE | 2024-05-31 12:27 | DVHDS2 ---
Discharge Summary Date of Admission May 30, 2024 at 05:11 Date of Discharge: May 31, 2024 Admitting Diagnosis Chest pain Wounds: None Labs/Diagnostic Data: Laboratory Results Test 05/30/24 11:32 05/30/24 05:10 05/30/24 02:07 Urine Opiates Screen Neg (NEGATIVE) Urine Fentanyl Screen Neg (NEGATIVE) Urine Barbiturates Screen Neg (NEGATIVE) Urine Phencyclidine Screen Neg (NEGATIVE) Urine Amphetamines Screen Pos (NEGATIVE) Urine Benzodiazepines Screen Neg (NEGATIVE) Urine Cocaine Screen Neg (NEGATIVE) Urine Cannabinoids Screen Neg (NEGATIVE) Hemoglobin A1c 5.7 % A1C (<5.7) Magnesium Level 2.0 mg/dL (1.6-2.6) Troponin I High Sensitivity 28 ng/L (</=34) White Blood Count 7.7 10^3/uL (4.4-10.8) Red Blood Count 4.38 10^6/uL (4.0-5.20) Hemoglobin 13.9 g/dL (12.2-16.2) Hematocrit 41.5 % (36.0-46.0) Mean Corpuscular Volume 94.6 fL (80.0-100.0) Mean Corpuscular Hemoglobin 31.7 pg (28.0-32.0) Mean Corpuscular Hemoglobin Concent 33.5 g/dL (32.0-36.0) Red Cell Distribution Width 14.2 % (11.8-14.3) Platelet Count 230 10^3/uL (140-450) Mean Platelet Volume 7.5 fL (6.9-10.8) Neutrophils (%) (Auto) 65.9 % (37.0-80.0) Lymphocytes (%) (Auto) 22.0 % (10.0-50.0) Monocytes (%) (Auto) 7.3 % (0.0-12.0) Eosinophils (%) (Auto) 4.0 % (0.0-7.0) Basophils (%) (Auto) 0.8 % (0.0-2.0) Neutrophils # (Auto) 5.1 10 ^3/uL (1.6-8.6) Lymphocytes # (Auto) 1.7 10 ^3/uL (0.4-5.4) Monocytes # (Auto) 0.6 10 ^3/uL (0-1.3) Eosinophils # (Auto) 0.3 10 ^3/uL (0-0.8) Basophils # (Auto) 0.1 10 ^3/uL (0-0.2) Nucleated Red Blood Cells 0.0 % Sodium Level 139 mmol/L (136-145) Potassium Level 4.4 mmol/L (3.5-5.1) Chloride Level 106 mmol/L (98-107) Carbon Dioxide Level 26 mmol/L (20-31) Anion Gap 7 (5-15) Blood Urea Nitrogen 17 mg/dL (9-23) Creatinine 0.84 mg/dL (0.550-1.02) Glomerular Filtration Rate Calc 79 mL/min (>90) BUN/Creatinine Ratio 20.2 (10.0-20.0) Serum Glucose 121 mg/dL (74-106) Calcium Level 9.5 mg/dL (8.7-10.4) Total Bilirubin 0.2 mg/dL (0.2-1.0) Aspartate Amino Transferase (AST) 13 U/L (13-40) Alanine Aminotransferase (ALT) 15 U/L (7-40) Alkaline Phosphatase 124 U/L (46-116) B-Type Natriuretic Peptide 34.48 pg/mL (0-100) Total Protein 6.9 g/dL (5.7-8.2) Albumin 4.2 g/dL (3.2-4.8) Triglycerides Level 156 mg/dL (< 150) Cholesterol Level 173 mg/dL (< 200) LDL Cholesterol 105 mg/dL (< 100) HDL Cholesterol 51 mg/dL (40-59) Thyroid Stimulating Hormone (TSH) 4.12 uIU/mL (0.55-4.78) Other Laboratory Tests 05/30/24 02:07 Brief Hx & Hospital Course: 63-year-old female came in for chest pain troponin negative x3 echo 60 percent ejection fraction tested positive for amphetamine abuse. Seen by Cardiology left heart catheterization [facility] December 2023 neg no further cardiac workup discharged home patient asymptomatic and stable at the time of discharge Consults/Reason for consult Cardiology consult by Dr. Car Operations or Procedures Echocardiogram Condition at Discharge: Fair Final Diagnosis/Problems List Noncardiac chest pain Methamphetamine abuse Discharge Disposition: Home Discharge Instruct/Medications Diet: Cardiac 2g Na,low cholest Activity: Light activity Follow Up/Referral: Follow up with the primary Dr Medications: None 35 (Time Taken for discharge summary 35 minutes) Discharge Statement: "Patient was advised to return to the ER or call 911 if any headaches, dizziness, shortness of breath, chest pain, abdominal pain, bleeding, fevers, or worsening of medical condition. Patient was counseled about treatment plan, medications, possible side effects, patientverbalized understanding. All questions were answered to the best of my ability. This discharge took greater then 30 minutes in planning, reviewing documentation, counseling the patient, and discussing with other team members." ASSESSMENT ASSESSMENT Hospital Course Improved Assessment Noncardiac chest pain Methamphetamine abuse Date of Service: May 31, 2024 Billing Provider: TANIA APARICIO MD Common Visit Codes: 17321-CBR/OBS DISCH DAY >30min TANIA APARICIO MD May 31, 2024 12:27
== END 2024-05-31 15:38 | disposition home or self-care (01) | DRG 133 ==
LOC: EDBD 01:53 → ER 01:53 → OVERFLOW 05:11 → TELE-WESTW 23:56
PROVIDERS: ADMIT Family Medicine; ATTEND Family Medicine
DX: J96.00 Acute respiratory failure, unspecified whether with hypoxia or hypercapnia (principal); I11.0 Hypertensive heart disease with heart failure; I50.9 Heart failure, unspecified; E66.9 Obesity, unspecified; I25.10 Atherosclerotic heart disease of native coronary artery without angina pectoris; Z68.29 Body mass index [BMI] 29.0-29.9, adult; E78.5 Hyperlipidemia, unspecified; F15.10 Other stimulant abuse, uncomplicated; I49.3 Ventricular premature depolarization; I25.2 Old myocardial infarction; Z87.891 Personal history of nicotine dependence; Z79.899 Other long term (current) drug therapy; Z90.49 Acquired absence of other specified parts of digestive tract; Z98.891 History of uterine scar from previous surgery; Z79.82 Long term (current) use of aspirin
CPT/HCPCS: 36415; 71045; 80053; 80061; 80307; 83036; 83735; 83880; 84443; 84484; 85025; 93005; 93306; G0378; J2405

== ENCOUNTER 2024-11-15 16:16 | Emergency (ER) | payer MEDICAID ==
[~2024-11-15] VITALS: Ht 154.9 cm; Wt 75.8 kg
[~2024-11-15 16:16] MED LIST changes: -ACET500T58 PO; +ASPI81CH49 PO; +ATOR40TA52 PO; +FLUO-126 PO; -NITR-87 PO; -ZOFR4T PO
--- NOTE | 2024-11-15 16:38 | ED.PDOC ---
Musculoskeletal HPI Comments 64 y.o female presents to the ED for a chief complaint of right calf pain that started yesterday. Patient felt a spasm sensation at night, states she woke up to go to her PCP's appointment and noticed swelling increasingly worsening. Patient denies any warmness and there is no redness to extremity. Denies fever, chills, chest pain, nausea, vomiting, fever, chills. Patient was hypertensive and tachycardic at arrival. Patient appeared anxious and may be utilizing illicit drugs. Chief Complaint: Lower Extremity Time Seen by MD: 16:30 Reviewed Notes: Nurses Notes, Medications, Allergies Allergies: Coded Allergies: No Known Drug Allergy (Verified Allergy, Unknown, 03/30/24) Home Meds Reported Medications Atorvastatin Calcium (ATORVASTATIN CALCIUM) 40 Mg Tab, 1 TAB PO DAILY 05/31/24 Aspirin (Aspirin) 81 Mg Chw, 1 TAB PO DAILY 05/31/24 Fluoxetine Hcl (Fluoxetine Hcl) 10 Mg Cap, 10 MG PO DAILY for 30 Days, MG 05/30/24 Information Source: Patient Mode of Arrival: Ambulatory Location: Right Extremity Location: Calf Timing: Days (1) Severity: Moderate Able to Move Extremity: Yes Bear Weight: Fully Pain: Moderate Mechanism: None Circumstances: Spontaneous Onset of Symptoms: Spontaneous Symptoms: Swelling, Pain Associated signs and symptoms: Swelling, Other Past Medical History PAST MEDICAL HISTORY: CHF, HTN, MD Surgical History: Denies all surgeries [employer] History: No Pertinent [employer] History Family History Family History: Reviewed,noncontributory to illness, No family hx of Cancer, No family hx of DM, No family hx of Heart janusz, No family hx of HTN, No family hx ofKidney janusz, No family hx of Liver janusz, No family hx of Lung janusz, No family hx of Stroke Social History Smoker: Non-Smoker Alcohol: Denies ETOH Use Drugs: Denies Drug Use Lives In: Home Constitutional: denies: chills, diaphoresis, fatigue, fever, malaise, sweats, weakness, others EENTM: denies: blurred vision, double vision, ear bleeding, ear discharge, ear drainage, ear pain, ear ringing, eye pain, eye redness, hearing loss, mouth pain, mouth swelling, nasal discharge, nose bleeding, nose congestion, nose pain, photophobia, tearing, throat pain, throat swelling, voice changes, others Respiratory: denies: cough, hemoptysis, orthopnea, SOB at rest, shortness of breath, SOB with excertion, stridor, wheezing, others Cardiovascular: denies: chest pain, dizzy spells, diaphoresis, Dyspnea on exertion, edema, irregular heart beat, left arm pain, lightheadedness, palpitations, PND, syncope, others Gastrointestinal: denies: abdomen distended, abdominal pain, blood streaked bowels, constipated, diarrhea, dysphagia, difficulty swallowing, hematemesis, melena, nausea, poor appetite, poor fluid intake, rectal bleeding, rectal pain, vomiting, others Genitourinary: denies: abnormal vagina bleeding, burning, dyspareunia, dysuria, flank pain, frequency, hematuria, incontinence, pain, , vagina discharge, urgency, others Neurological: denies: dizziness, fainting, headache, left sided numbness, left sided weakness, numbness, paresthesia, pre-existing deficit, right sided numbness, right sided weakness, seizure, speech problems, tingling, tremors, weakness, others Musculoskeletal: reports: others (right leg swelling with pain ); denies: back pain, gout, joint pain, joint swelling, muscle pain, muscle stiffness, neck pain Integumetry: denies: bruises, change in color, change in hair/nails, dryness, laceration, lesions, lumps, rash, wounds, others Allergic/Immunocompromised: denies: Difficulty Healing, Frequent Infections, Hi ves, Itching, others Hematologic/Lymphatic: denies: anemia, blood clots, easy bleeding, easy bruising, swollen glands, others Endocrine: denies: excessive hunger, excessive sweating, excessive thirst, excessive urination, flushing, intolerance to cold, intolerance to heat, unexplained weight gain, unexplained weight loss, others Psychiatric: denies: anxiety, bipolar disorder, depression, hopeless, panic disorder, schizophrenia, sleepless, suicidal, others All Other Systems: Reviewed and Negative Physical Exam General Appearance: Moderate Distress ([id number] distress due to right calf pain concerns. Patient asked for pain medication, but was hopeful up was going to be mild.), Obese HEENT: Normal ENT Inspection, Pharynx Normal, TMs Normal Neck: Full Range of Motion, Non-Tender, Normal, Normal Inspection Respiratory: Chest Non-Tender, Lungs Clear, No Accessory Muscle Use, No Respiratory Distress, Normal Breath Sounds Cardiovascular: No Edema, No JVD, No Murmur, No Gallop, Normal Peripheral Pulses, Regular Rate/Rhythm Breast Exam: Deferred Gastrointestinal: No Organomegaly, Non Tender, No Pulsatile Mass, Normal Bowel Sounds, Soft Genitalia: Deferred Pelvic: Deferred Rectal: Deferred Extremities: Other (Right calf reveals some [id number] edema without erythema or ecchymosis. Skin is relatively taut. Distal neurovascularly intact.) Neurologic: Alert Cerebellar Function: NOT DONE Reflexes: NOT DONE Skin: Dry, Normal Color, Warm Lymphatic: No Adenopathy Was a procedure done? Was a procedure done?: No Differential Diagnosis EXT Differential Diagnosis: Deep Vein Thrombosis, Sprain, Gout, Strain, Other (Sepsis, electrolyte abnormality, peripheral edema) X-Ray, Labs, Meds, VS Vital Signs Date Time Temp Pulse Resp B/P (MAP) Pulse Ox O2 Delivery O2 Flow Rate FiO2 11/15/24 19:27 98.4 118 16 139/84 (102) 98 98.4 11/15/24 16:59 98.0 125 17 129/81 (97) 92 98.0 11/15/24 16:19 98.8 143 21 157/102 95 98.8 Lab Test 11/15/24 17:11 Range/Units White Blood Count 12.0 H 4.4-10.8 10^3/uL Red Blood Count 4.65 4.0-5.20 10^6/uL Hemoglobin 14.6 12.2-16.2 g/dL Hematocrit 42.4 36.0-46.0 % Mean Corpuscular Volume 91.2 80.0-100.0 fL Mean Corpuscular Hemoglobin 31.3 28.0-32.0 pg Mean Corpuscular Hemoglobin Concent 34.4 32.0-36.0 g/dL Red Cell Distribution Width 13.8 11.8-14.3 % Platelet Count 243 140-450 10^3/uL Mean Platelet Volume 8.5 6.9-10.8 fL Neutrophils (%) (Auto) 78.5 37.0-80.0 % Lymphocytes (%) (Auto) 14.9 10.0-50.0 % Monocytes (%) (Auto) 5.7 0.0-12.0 % Eosinophils (%) (Auto) 0.3 0.0-7.0 % Basophils (%) (Auto) 0.6 0.0-2.0 % Neutrophils # (Auto) 9.4 H 1.6-8.6 10 ^3/uL Lymphocytes # (Auto) 1.8 0.4-5.4 10 ^3/uL Monocytes # (Auto) 0.7 0-1.3 10 ^3/uL Eosinophils # (Auto) 0 0-0.8 10 ^3/uL Basophils # (Auto) 0.1 0-0.2 10 ^3/uL Nucleated Red Blood Cells 0.0 % Prothrombin Time 10.4 9.3-11.8 sec Prothrombin Time INR 0.98 0.9-1.15 Sodium Level 142 136-145 mmol/L Potassium Level 4.2 3.5-5.1 mmol/L Chloride Level 103 98-107 mmol/L Carbon Dioxide Level 29 20-31 mmol/L Anion Gap 10 5-15 Blood Urea Nitrogen 27 H 9-23 mg/dL Creatinine 1.22 H 0.550-1.02 mg/dL Glomerular Filtration Rate Calc 50 >90 mL/min BUN/Creatinine Ratio 22.1 H 10.0-20.0 Serum Glucose 121 H 74-106 mg/dL Calcium Level 9.9 8.7-10.4 mg/dL Current Medications Medications (Trade) Dose Ordered Sig/Michael Route Start Time Stop Time Status Last Admin Acetaminophen/ Hydrocodone Bitart (Sheldon 5/325MG Tab) 1 tab ONCE ONCE PO 11/15/24 16:45 11/15/24 16:46 DC 11/15/24 16:59 X-Ray, Labs, Meds, VS Comment All studies performed the ED were evaluated by me personally. Serum studies revealed what appears to be in acute renal injury. I discussed the findings with the patient and she informed me that she has a history of renal concerns and that she sees a specialist for those. Doppler study of the right lower extremity was unremarkable for any DVT formation, but did have an incidental finding of a Sanford cyst. Advised patient utilize anti-inflammatory meds and follow up with the primary care provider for discussions related to today's visit and findings. Time of 1ST Reevaluation: 19:41 Reevaluation 1ST: Unchanged Consultation: PCP Patient Education/Counseling: Diagnosis, Treatment, Prognosis Family Education/Counseling: Diagnosis, Treatment, No Family Present Departure 1 Departure Time of Disposition: 19:41 Impression: Primary Impression: Sanford's cyst of knee Additional Impression: Chronic renal disease Disposition: HOME / SELF CARE / HOMELESS Condition: Stable Additional Instructions: Advised patient utilize pain medication as needed and additionally, patient should follow up with the primary care provider for discussions related to today's visit as well as ongoing renal management. e-Prescriptions Tramadol Hcl (Tramadol Hcl) 50 Mg Tab 50 MG PO Q8HP PRN, #15 TAB Prov: YULISA COLON PAC 11/15/24 Discharged With: Self, Friend Critical Care Note Critical Care Time?: No Stability Stability form required: No I personally scribed for YULISA COLON PAC ([email or web address]) on 11/15/24 at 16:38. Electronically submitted by Duyen Raymond ([facility]). YULISA COLON PAC Nov 15, 2024 16:38
[2024-11-15] MEDS: HYDROcodone-ACET 5/325MG TAB PO ONE (16:59)
[2024-11-15 17:34] LABS: Hematocrit 42.4 % (36.0-46.0); Hemoglobin 14.6 g/dL (12.2-16.2); Mean Corpuscular Hemoglobin 31.3 pg (28.0-32.0); Mean Corpuscular Volume 91.2 fL (80.0-100.0); Nucleated Red Blood Cells % 0.0 %
[2024-11-15 17:35] LABS: Chloride 103 mmol/L (98-107); Potassium 4.2 mmol/L (3.5-5.1); Sodium 142 mmol/L (136-145)
--- NOTE | 2024-11-15 17:35 | DVH ---
Clinical History: DVT rule out right lower extremity Comparison: None Technique: Duplex Doppler evaluation of the deep venous system of the right lower extremity from the common femo ral vein to the popliteal vein including color Doppler and spectral/pulsed waveform analysis was perf ormed. Findings: The common femoral vein demonstrates appropriate compressibility and waveform variability. There is compressibility/patency of the great saphenous vein at the proximal thigh. The femoral vein demonstrates appropriate compressibility and waveform variability. The deep femoral vein demonstrates appropriate compressibility and waveform variability. The popliteal vein demonstrates appropriate compressibility and waveform variability. There is normal compressibility at the tibioperoneal trunk. 0.3 CM CYST IN THE AREA OF THE RIGHT POPLITEAL FOSSA Impression: 1. No RIGHT deep venous thrombosis. 2. SARAH'S CYST RIGHT POPLITEAL FOSSA 3. If clinical concern/symptoms persist or worsen, short-interval follow-up study is suggested.
[2024-11-15 17:36] LABS: Anion Gap 10 (5-15); Calcium 9.9 mg/dL (8.7-10.4); Carbon Dioxide 29 mmol/L (20-31)
[2024-11-15 17:39] LABS: INR 0.98 (0.9-1.15); Prothrombin Time 10.4 sec (9.3-11.8)
[2024-11-15 17:41] LABS: BUN/Creatinine Ratio 22.1 (10.0-20.0); Blood Urea Nitrogen 27 mg/dL (9-23); Glucose 121 mg/dL (74-106)
[2024-11-15 19:27] VITALS: BP 139/84; PULSE 118; RESP 20; TEMP 98.4; O2SAT 98
[2024-11-15] MEDS ORDERED: TRAM50TA2 PO (19:43)
== END 2024-11-15 21:02 | disposition home or self-care (01) ==
LOC: ER 16:21
DX: M71.21 Synovial cyst of popliteal space [Baker], right knee (principal); I13.0 Hypertensive heart and chronic kidney disease with heart failure and stage 1 through stage 4 chronic kidney disease, or unspecified chronic kidney disease; I50.9 Heart failure, unspecified; N18.9 Chronic kidney disease, unspecified; Z79.82 Long term (current) use of aspirin; Z79.899 Other long term (current) drug therapy
CPT/HCPCS: 36415; 80048; 85025; 85610; 93971

== ENCOUNTER 2024-11-16 15:51 | Inpatient (IN) | payer MEDICAID ==
[~2024-11-16] VITALS: Ht 154.9 cm; Wt 82.6 kg
[~2024-11-16 15:51] MED LIST changes: +TRAM50TA2 PO
[2024-11-16] MEDS: NITROGLYCERIN 0.4 MG SL TAB SL ONE (16:15)
[2024-11-16 16:45] LABS: Hematocrit 36.9 % (36.0-46.0); Hemoglobin 12.7 g/dL (12.2-16.2); Mean Corpuscular Hemoglobin 31.5 pg (28.0-32.0); Mean Corpuscular Volume 91.7 fL (80.0-100.0); Nucleated Red Blood Cells % 0.1 %
[2024-11-16 16:47] LABS: Chloride 103 mmol/L (98-107); Potassium 3.6 mmol/L (3.5-5.1); Sodium 141 mmol/L (136-145)
[2024-11-16 16:48] LABS: Anion Gap 11 (5-15); Carbon Dioxide 27 mmol/L (20-31)
[2024-11-16 16:49] LABS: Calcium 9.2 mg/dL (8.7-10.4)
[2024-11-16 16:53] LABS: BUN/Creatinine Ratio 25.2 (10.0-20.0)
[2024-11-16 16:54] LABS: Blood Urea Nitrogen 27 mg/dL (9-23); Glucose 119 mg/dL (74-106)
--- NOTE | 2024-11-16 17:02 | DVH ---
CHEST RADIOGRAPH Indication: Chest pain Technique: Single frontal view of the chest was obtained Comparison: XY CHEST XRAY 1 VIEW on DOS: 05/30/24 FINDINGS: Lines and Tubes: None Lungs: No focal consolidation. Pleura: No effusion. No pneumothorax. Cardiomediastinal contours: Unremarkable Bones: No acute osseous abnormality. 22 mm linear density overlying the right lateral shoulder soft t issue which is most likely external to the patient. IMPRESSION: No acute cardiopulmonary disease.
[2024-11-16 19:10] LABS: Urine Protein, UAD TRACE (Negative)
--- NOTE | 2024-11-16 20:45 | ED.PDOC ---
History of Present Illness HPI Comments This patient is a obese 64-year-old female who returns to the ED today for re- evaluation of right lower extremity concerns and new complaints of chest pain concerns today. Patient was seen yesterday due to right lower extremity swelling and pain. Doppler study that time ruled out any DVT but confirmed a Sanford cyst. Patient states that is subsequent to yesterday, her leg has gotten larger and become more painful. Additionally, patient complains of chest pain concerns. Patient states she has a cardiac history, but has not been able to secure proper cardiology follow up for multiple reasons. Patient denies any fever nausea or vomiting. Vital signs were stable on arrival. Chief Complaint: Urinary Time Seen by MD: 16:10 Reviewed Notes: Nurses Notes Allergies: Coded Allergies: No Known Drug Allergy (Verified Allergy, Unknown, 03/30/24) Home Meds Active Scripts Tramadol Hcl (Tramadol Hcl) 50 Mg Tab, 50 MG PO Q8HP PRN, #15 TAB Prov:ISAIAHYULISA PAC 11/15/24 Reported Medications Atorvastatin Calcium (ATORVASTATIN CALCIUM) 40 Mg Tab, 1 TAB PO DAILY 05/31/24 Aspirin (Aspirin) 81 Mg Chw, 1 TAB PO DAILY 05/31/24 Fluoxetine Hcl (Fluoxetine Hcl) 10 Mg Cap, 10 MG PO DAILY for 30 Days, MG 05/30/24 Information Source: Patient, Relative (Child) Mode of Arrival: Ambulatory Severity: Moderate Timing: Days Duration: Since onset Prehospital treatment: Pain Meds Past Medical History PAST MEDICAL HISTORY: CAD, CHF, HTN, MD Past Medical History (Other): Right lower extremity Sanford cyst diagnosed yesterday Surgical History: Denies all surgeries PIPE FITTER APPRENTICE History: No Pertinent PIPE FITTER APPRENTICE History Family History Family History: Reviewed,noncontributory to illness, No family hx of Cancer, No family hx of DM, No family hx of Heart janusz, No family hx of HTN, No family hx ofKidney janusz, No family hx of Liver janusz, No family hx of Lung janusz, No family hx of Stroke Social History Smoker: Non-Smoker Alcohol: Denies ETOH Use Drugs: Denies Drug Use Lives In: Home Constitutional: denies: chills, diaphoresis, fatigue, fever, malaise, sweats, weakness, others EENTM: denies: blurred vision, double vision, ear bleeding, ear discharge, ear drainage, ear pain, ear ringing, eye pain, eye redness, hearing loss, mouth pain, mouth swelling, nasal discharge, nose bleeding, nose congestion, nose pain, photophobia, tearing, throat pain, throat swelling, voice changes, others Respiratory: denies: cough, hemoptysis, orthopnea, SOB at rest, shortness of breath, SOB with excertion, stridor, wheezing, others Cardiovascular: reports: chest pain; denies: dizzy spells, diaphoresis, Dyspnea on exertion, edema, irregular heart beat, left arm pain, lightheadedness, palpitations, PND, syncope, others Gastrointestinal: denies: abdomen distended, abdominal pain, blood streaked bowels, constipated, diarrhea, dysphagia, difficulty swallowing, hematemesis, melena, nausea, poor appetite, poor fluid intake, rectal bleeding, rectal pain, vomiting, others Genitourinary: denies: abnormal vagina bleeding, burning, dyspareunia, dysuria, flank pain, frequency, hematuria, incontinence, pain, , vagina discharge, urgency, others Neurological: denies: dizziness, fainting, headache, left sided numbness, left sided weakness, numbness, paresthesia, pre-existing deficit, right sided numbness, right sided weakness, seizure, speech problems, tingling, tremors, weakness, others Musculoskeletal: reports: others (Right lower extremity pain); denies: back pain, gout, joint pain, joint swelling, muscle pain, muscle stiffness, neck pain Integumetry: denies: bruises, change in color, change in hair/nails, dryness, laceration, lesions, lumps, rash, wounds, others Allergic/Immunocompromised: denies: Difficulty Healing, Frequent Infections, Hives, Itching, others Hematologic/Lymphatic: denies: anemia, blood clots, easy bleeding, easy bruising, swollen glands, others Endocrine: denies: excessive hunger, excessive sweating, excessive thirst, excessive urination, flushing, intolerance to cold, intolerance to heat, unexplained weight gain, unexplained weight loss, others Psychiatric: reports: anxiety; denies: bipolar disorder, depression, hopeless, panic disorder, schizophrenia, sleepless, suicidal, others Physical Exam General Appearance: Moderate Distress (Moderate distress due to anxiety as much as pain related concerns.), Obese HEENT: Normal ENT Inspection, Pharynx Normal, TMs Normal Neck: Full Range of Motion, Non-Tender, Normal, Normal Inspection Respiratory: Chest Non-Tender, Lungs Clear, No Accessory Muscle Use, No Respiratory Distress, Normal Breath Sounds Cardiovascular: No Edema, No JVD, No Murmur, No Gallop, Normal Peripheral Pulses, Tachycardia Breast Exam: Deferred Gastrointestinal: No Organomegaly, Non Tender, No Pulsatile Mass, Normal Bowel Sounds, Soft Genitalia: Deferred Pelvic: Deferred Rectal: Deferred Extremities: Other (Right lower extremity reveals extensive edema from the proximal calf to the ankle region. Tender to palpation throughout. Area of appears warm. Mild erythema) Neurologic: Alert Cerebellar Function: NOT DONE Reflexes: NOT DONE Skin: Dry, Normal Color, Warm Lymphatic: No Adenopathy Was a procedure done? Was a procedure done?: No Differential Dx Considerations may include: Right lower extremity pain, acute coronary syndrome, MD, angina, anxiety X-Ray, Labs, Meds, VS Vital Signs Date Time Temp Pulse Resp B/P (MAP) Pulse Ox O2 Delivery O2 Flow Rate FiO2 11/16/24 18:23 106 20 96 Room Air 11/16/24 18:23 98.4 105 20 101/62 (75) 96 98.4 11/16/24 17:15 138/72 11/16/24 16:15 145/85 11/16/24 15:53 98.1 61 18 136/97 96 98.1 Lab Test 11/16/24 19:23 11/16/24 18:21 11/16/24 17:30 11/16/24 16:27 Range/Units Troponin I High Sensitivity 15 15 17 </=34 ng/L Urine Color Yellow Yellow Urine Clarity Clear Clear Urine pH 5.0 5.0-9.0 Urine Specific [place] 1.023 1.001-1.035 Urine Protein Trace H Negative Urine Ketones Negative Negative Urine Blood Negative Negative /uL Urine Nitrite Negative Negative Urine Bilirubin Negative Negative Urine Urobilinogen Normal Negative mg/dL Urine Leukocyte Esterase 3+ Negative /uL Urine RBC 3 0 - 4 /hpf Urine Microscopic WBC 47 H 0-5 /HPF Urine Squamous Epithelial Cells Few <5 /hpf Urine Bacteria Few H None Seen /hpf Urine Hyaline Casts Few 0 - 2 /lpf Urine Mucus Few None Seen Urine Glucose Normal Normal mg/dL White Blood Count 10.2 4.4-10.8 10^3/uL Red Blood Count 4.03 4.0-5.20 10^6/uL Hemoglobin 12.7 12.2-16.2 g/dL Hematocrit 36.9 # 36.0-46.0 % Mean Corpuscular Volume 91.7 80.0-100.0 fL Mean Corpuscular Hemoglobin 31.5 28.0-32.0 pg Mean Corpuscular Hemoglobin Concent 34.4 32.0-36.0 g/dL Red Cell Distribution Width 14.0 11.8-14.3 % Platelet Count 224 140-450 10^3/uL Mean Platelet Volume 8.4 6.9-10.8 fL Neutrophils (%) (Auto) 71.9 37.0-80.0 % Lymphocytes (%) (Auto) 19.1 10.0-50.0 % Monocytes (%) (Auto) 7.5 0.0-12.0 % Eosinophils (%) (Auto) 0.6 0.0-7.0 % Basophils (%) (Auto) 0.9 0.0-2.0 % Neutrophils # (Auto) 7.3 1.6-8.6 10 ^3/uL Lymphocytes # (Auto) 2.0 0.4-5.4 10 ^3/uL Monocytes # (Auto) 0.8 0-1.3 10 ^3/uL Eosinophils # (Auto) 0.1 0-0.8 10 ^3/uL Basophils # (Auto) 0.1 0-0.2 10 ^3/uL Nucleated Red Blood Cells 0.1 % D-Dimer, Quantitative 0.60 H 0.0-0.49 mg/L FEU Sodium Level 141 136-145 mmol/L Potassium Level 3.6 3.5-5.1 mmol/L Chloride Level 103 98-107 mmol/L Carbon Dioxide Level 27 20-31 mmol/L Anion Gap 11 5-15 Blood Urea Nitrogen 27 H 9-23 mg/dL Creatinine 1.07 H 0.550-1.02 mg/dL Glomerular Filtration Rate Calc 59 >90 mL/min BUN/Creatinine Ratio 25.2 H 10.0-20.0 Serum Glucose 119 H 74-106 mg/dL Calcium Level 9.2 8.7-10.4 mg/dL Current Medications Medications (Trade) Dose Ordered Sig/Michael Route Start Time Stop Time Status Last Admin Nitroglycerin (Ntrostat Sublingual) 0.4 mg ONCE ONCE SL 11/16/24 16:15 11/16/24 16:16 DC 11/16/24 16:15 X-Ray, Labs, Meds, VS Comment All studies performed the ED were evaluated by me personally. Serum laborator ies revealed a mild elevated D-dimer as well as what appears to be acute on chronic renal concerns. Patient additionally had a urinary tract infection. Cardiac markers were relatively unremarkable, but EKG revealed a sinus tachycardia with a rate of 100. Ventricular bigeminy was appreciated as well as right axis deviation and borderline T-wave abnormalities. CT interval 146 and QT interval of 360. This patient is having difficulties managing her right lower extremity concerns as well as requiring a cardiac consultation and management of cardiac concerns and therefore, patient will be admitted for pain management and cardiac evaluation. Time of 1ST Reevaluation: 20:44 Reevaluation 1ST: Improved Consultation: PCP, Cardiology Patient Education/Counseling: Diagnosis, Treatment Family Education/Counseling: Diagnosis, Treatment SEPSIS Sepsis Screen Date sepsis recognized/suspect: Nov 16, 2024 Time Sepsis recognized/suspect: 1823 Recent Procedure: No On Antibiotic Therapy: No Respiratory Rate >20: No Heart Rate >90: Yes Temp<36 C (96.8 F) or >38.3 C: No SBP <90 or MAP <65 mmHG: No New Acute Mental Status Change: No Is the patient on CPAP, BIPAP,: No Physician Orders Electrocardigram (11/16/24 16:12) Chest Portable (11/16/24 16:12) Hydrocodone-Acet 10/325mg Tab ([place] 10/ (11/16/24 20:45) Vital Signs Date Time Temp Pulse Resp B/P (MAP) Pulse Ox O2 Delivery O2 Flow Rate FiO2 11/16/24 18:23 106 20 96 Room Air 11/16/24 18:23 98.4 105 20 101/62 (75) 96 98.4 11/16/24 17:15 138/72 11/16/24 16:15 145/85 11/16/24 15:53 98.1 61 18 136/97 96 98.1 Laboratory Tests Test 11/16/24 16:27 White Blood Count 10.2 10^3/uL (4.4-10.8) Medications Medications Dose Ordered Sig/Michael Route Start Time Stop Time Status Last Admin Dose Admin Nitroglycerin 0.4 mg ONCE ONCE SL 11/16/24 16:15 11/16/24 16:16 DC 11/16/24 16:15 Departure 1 Departure Time of Disposition: 20:44 Impression: Primary Impression: Chest pain Additional Impressions: Ventricular bigeminy [id number] kidney injury Urinary tract infection Disposition: ADMITTED INPATIENT Condition: Stable Discharged With: Self Critical Care Note Critical Care Time?: No Stability Stability form required: No Heart Score Heart Score: Heart Score Response (Comments) Value History Slightly Suspicious 0 EKG Repolarization Disturb 1 Age 45-64 1 Risk Factors >3 or Hx ASHD 2 Troponin Normal limit 0 Total 4 YULISA COLON PAC Nov 16, 2024 20:45
[2024-11-16] MEDS: HYDROcodone-ACET 10/325MG TAB PO ONE (21:58)
[2024-11-16] MEDS: cefTRIAXone SOD 1,000 MG VL IM ONE (21:59)
[2024-11-17] VITALS (8 sets, daily range): BP systolic 89–137; BP diastolic 52–81; PULSE 63–85; RESP 16–20; TEMP 97.9–98.2; O2SAT 91–96
[2024-11-17] MEDS: MAALOX PLUS or MAALOX 30 ML PO ONE (00:25)
[2024-11-17] MEDS: LIDOCAINE VISCOUS 2% 15ML UD PO ONE (00:25)
[2024-11-17] MEDS: diphenhdrAMINE HCL 50 MG/1 ML VL IM ONE (00:28)
[2024-11-17] MEDS ORDERED: MORPHINE SULFATE INJ 2 MG/ml SYRG IV PRN (02:45)
[2024-11-17] MEDS ORDERED: NITROGLYCERIN 0.4 MG SL TAB SL PRN (02:45)
--- NOTE | 2024-11-17 02:47 | DVHHP2 ---
History of Present Illness History of Present Illness Patient is 64-year-old female who came to the hospital with a chief complaint of right-sided lower extremity swelling, calf pain. As per patient right-sided lower extremity swelling extended till mid thigh, was visited emergency department one day ago where she was told that she has Sanford's cyst but no clot in the right lower extremity. However patient continued to have severe right lower extremity swelling with pain associated with mild chest pain which is pressure-like in nature, chronic, comes at rest, worsened with exertion. Patient had one year ago hospitalization has a [facility] where she underwent coronary angiogram and was told that she has 100% RCA occlusion and 40-50% in left coronary artery. No stent intervention was done at that point and advised with meth amphetamine abuse cessation and continue medical management and follow with primary care physician and checkroom chief. However patient is noncompliant and did not took the medication which was prescribed. Again patient came back with chronic chest pain, substernal, 5/10, comes at rest, worsened with exertion, nonradiating. Past medical history: NSTEMI, cardiomegaly, hyperlipidemia, methamphetamine use, horseshoe kidney, nicotine dependence, hypertension, hypertensive heart disease without CHF Personal history: Half a pack cigarette smoking for 40 years, former meth user, denying any other recreational drug use. Lives with family in [place]. Her PCP and checkroom chief in [facility]. Medical Manager Dr. Velez. Home medication: Atorvastatin 40 mg p.o. daily, nitroglycerin p.r.n. for chest pain, metoprolol tartrate 50 mg p.o. b.i.d., aspirin 81 mg p.o. daily, lisin opril 5 mg p.o. daily. Review of Systems Constitutional: No: Fever, Chills, Sweats, Weakness, Malaise, Other Eyes: No: Pain, Vision change, Conjunctivae inflammation, Eyelid inflammation, Other, Redness ENT: No: Ear pain, Ear discharge, Nose pain, Nose discharge, Nose congestion, Mouth pain, Mouth swelling, Throat pain, Throat swelling, Other Respiratory: No: Cough, Dry, Shortness of breath, SOB with excertion, Wheezing, Hemoptysis, Pleuritic Pain, Sputum, Wheezing, Other Cardiovascular: No: Chest Pain, Palpitations, Orthopnea, Paroxysmal Noc. Dyspnea, Edema, Lt Headedness, Other Gastrointestinal: No: Nausea, Vomiting, Abdominal Pain, Diarrhea, Constipation, Melena, Hematochezia, Other Genitourinary: No Dysuria, No Frequency, No Incontinence, No Hematuria, No Retention, No Other Musculoskeletal: leg pain Skin: No: Rash, Lesions, Jaundice, Bruising, Other Neurological: No: Weakness, Numbness, Incoordination, Change in speech, C onfusion, Seizures, Other Allergies: Coded Allergies: No Known Drug Allergy (Verified Allergy, Unknown, 03/30/24) Medications Current Medications Medications Dose Ordered Sig/Michael Route Start Time Stop Time Status Last Admin Dose Admin Nitroglycerin 0.4 mg Q5MINP PRN SL 11/17/24 02:45 UNV Morphine Sulfate 2 mg Q30M PRN IV 11/17/24 02:45 UNV Furosemide 40 mg DAILY IV 11/18/24 10:00 UNV Atorvastatin Calcium 40 mg HS PO 11/17/24 22:00 UNV Metoprolol Succinate 50 mg DAILY PO 11/17/24 10:00 UNV Aspirin 81 mg DAILY PO 11/17/24 10:00 UNV Lisinopril 5 mg DAILY PO 11/17/24 10:00 UNV Famotidine 20 mg Q12HR PO 11/17/24 10:00 UNV Enoxaparin Sodium 30 mg DAILY SC 11/17/24 10:00 UNV Exam Vital Signs Vital Signs Date Time Temp Pulse Resp B/P (MAP) Pulse Ox O2 Delivery O2 Flow Rate FiO2 11/16/24 23:00 98.2 66 20 111/88 (96) 99 98.2 11/16/24 18:23 Room Air General Appearance: Alert, Oriented X3, Cooperative, No acute distress HEENT: Atraumatic, PERRLA, EOMI, Mucous membr. moist/pink Respiratory: Clear to auscultation, Normal air movement Cardiovascular: Regular rate, Normal S1, Normal S2, No murmurs Abdominal: Normal bowel sounds, Soft, No tenderness Extremities: No clubbing, No cyanosis, Normal pulses, Other (Right lower extremity swelling and tenderness, presence of pedal pulse. 1+ pedal edema.) Skin: No rashes, No breakdown, No significant lesion Neuro: Normal gait, Normal speech, Strength at 5/5 X4 ext, Normal tone, Sensation intact, Cranial nerves 3-12 NL Labs/Xrays Labs Test 11/16/24 19:23 11/16/24 18:21 11/16/24 16:27 Range/Units Troponin I High Sensitivity 15 </=34 ng/L Urine Color Yellow Yellow Urine Clarity Clear Clear Urine pH 5.0 5.0-9.0 Urine Specific [place] 1.023 1.001-1.035 Urine Protein Trace H Negative Urine Ketones Negative Negative Urine Blood Negative Negative /uL Urine Nitrite Negative Negative Urine Bilirubin Negative Negative Urine Urobilinogen Normal Negative mg/dL Urine Leukocyte Esterase 3+ Negative /uL Urine RBC 3 0 - 4 /hpf Urine Microscopic WBC 47 H 0-5 /HPF Urine Squamous Epithelial Cells Few <5 /hpf Urine Bacteria Few H None Seen /hpf Urine Hyaline Casts Few 0 - 2 /lpf Urine Mucus Few None Seen Urine Glucose Normal Normal mg/dL White Blood Count 10.2 4.4-10.8 10^3/uL Red Blood Count 4.03 4.0-5.20 10^6/uL Hemoglobin 12.7 12.2-16.2 g/dL Hematocrit 36.9 # 36.0-46.0 % Mean Corpuscular Volume 91.7 80.0-100.0 fL Mean Corpuscular Hemoglobin 31.5 28.0-32.0 pg Mean Corpuscular Hemoglobin Concent 34.4 32.0-36.0 g/dL Red Cell Distribution Width 14.0 11.8-14.3 % Platelet Count 224 140-450 10^3/uL Mean Platelet Volume 8.4 6.9-10.8 fL Neutrophils (%) (Auto) 71.9 37.0-80.0 % Lymphocytes (%) (Auto) 19.1 10.0-50.0 % Monocytes (%) (Auto) 7.5 0.0-12.0 % Eosinophils (%) (Auto) 0.6 0.0-7.0 % Basophils (%) (Auto) 0.9 0.0-2.0 % Neutrophils # (Auto) 7.3 1.6-8.6 10 ^3/uL Lymphocytes # (Auto) 2.0 0.4-5.4 10 ^3/uL Monocytes # (Auto) 0.8 0-1.3 10 ^3/uL Eosinophils # (Auto) 0.1 0-0.8 10 ^3/uL Basophils # (Auto) 0.1 0-0.2 10 ^3/uL Nucleated Red Blood Cells 0.1 % D-Dimer, Quantitative 0.60 H 0.0-0.49 mg/L FEU Sodium Level 141 136-145 mmol/L Potassium Level 3.6 3.5-5.1 mmol/L Chloride Level 103 98-107 mmol/L Carbon Dioxide Level 27 20-31 mmol/L Anion Gap 11 5-15 Blood Urea Nitrogen 27 H 9-23 mg/dL Creatinine 1.07 H 0.550-1.02 mg/dL Glomerular Filtration Rate Calc 59 >90 mL/min BUN/Creatinine Ratio 25.2 H 10.0-20.0 Serum Glucose 119 H 74-106 mg/dL Calcium Level 9.2 8.7-10.4 mg/dL SEPSIS Sepsis Screen Date sepsis recognized/suspect: Nov 16, 2024 Time Sepsis recognized/suspect: 1823 Recent Procedure: No On Antibiotic Therapy: No Respiratory Rate >20: No Heart Rate >90: Yes Temp<36 C (96.8 F) or >38.3 C: No SBP <90 or MAP <65 mmHG: No New Acute Mental Status Change: No Is the patient on CPAP, BIPAP,: No Physician Orders Admit (11/17/24 02:37) Nitroglycerin Sublingual (Ntrostat Subli (11/17/24 02:45) Morphine Sulfate Injection (11/17/24 02:45) Oxygen By Nasal Cannula (11/17/24 02:37) Stat Ekg For Chest Pain (11/17/24 02:37) Notify Md Of Changes From Base (11/17/24 02:37) Tool Repair Technician For 24 Hours (11/17/24 02:37) Emergency Dysrhythmia Protocol (11/17/24 02:37) Rhythm Strips Once Every Shift (11/17/24 02:37) Electrocardigram (11/17/24 02:37) Comprehensive Metabolic Panel (11/17/24 04:00) B-Type Natriuretic Peptide (11/17/24 02:37) Drug Screen (11/17/24 02:37) Hemoglobin A1c (11/17/24 02:37) Thyroid Stimulating Hormone (11/17/24 02:37) Echo 2d Mode Cardiac Dop (11/17/24 02:41) Furosemide Injection (Lasix Injection) (11/17/24 02:45) Furosemide Injection (Lasix Injection) (11/18/24 10:00) Magnesium (11/17/24 02:41) Atorvastatin (Lipitor) (11/17/24 22:00) Metoprolol Xl Succinate (Toprol Xl) (11/17/24 02:45) Metoprolol Xl Succinate (Toprol Xl) (11/17/24 10:00) Aspirin Tablet (11/17/24 10:00) Lisinopril Tablet (Zestril Tablet) (11/17/24 10:00) Famotidine Tablet (Pepcid Tablet) (11/17/24 10:00) Enoxaparin Sodium (Lovenox) (11/17/24 10:00) Vital Signs Date Time Temp Pulse Resp B/P (MAP) Pulse Ox O2 Delivery O2 Flow Rate FiO2 11/16/24 23:00 98.2 66 20 111/88 (96) 99 98.2 Laboratory Tests Test 11/16/24 16:27 White Blood Count 10.2 10^3/uL (4.4-10.8) Medications Medications Dose Ordered Sig/Michael Route Start Time Stop Time Status Last Admin Dose Admin Acetaminophen/ Hydrocodone Bitart 1 tab ONCE ONCE PO 11/16/24 20:45 11/16/24 20:46 DC 11/16/24 21:58 1 TAB Al Hydrox/Mg Hydrox/Simethicone 30 ml ONCE ONCE PO 11/17/24 00:30 11/17/24 00:31 DC 11/17/24 00:25 30 ML Ceftriaxone Sodium 1,000 mg ONCE ONCE IM 11/16/24 20:00 11/16/24 20:01 DC 11/16/24 21:59 1,000 MG Diphenhydramine HCl 25 mg ONCE ONCE IM 11/17/24 00:30 11/17/24 00:31 DC 11/17/24 00:28 25 MG Lidocaine HCl 3 ml ONCE ONCE PO 11/17/24 00:30 11/17/24 00:31 DC 11/17/24 00:25 3 ML Nitroglycerin 0.4 mg ONCE ONCE SL 11/16/24 16:15 11/16/24 16:16 DC 11/16/24 16:15 0.4 MG Assessment/Plan Assessment/Plan Right lower extremity swelling likely related to ischemic cardiomyopathy Elevated D-dimer, rule out right lower extremity DVT. Hypertensive heart disease with acute systolic versus diastolic CHF Coronary artery disease with chronic chest pain with stable angina CKD stage 3 a Cardiomegaly Prediabetic A1c 5.8% on 11/17/2024 Hyperlipidemia Horseshoe kidney Transaminitis Former smoker Former methamphetamine use Plan/recommendation -history of coronary angiogram in December 2023 in [facility]: Ejection fraction 52%, total coronary calcium score 184 ag[place]. 99% stenosis mid right coronary artery, high-risk plaque. 49% stenosis in proximal LAD with hypodense plaque. 20% stenosis and mid to left circumflex coronary artery. 15% stenosis of paroxysmal right coronary artery. As per patient she is following with checkroom chief, for further evaluation of CABG. Cardiology consultation -repeat right lower extremity DVT, echocardiogram for evaluation of structural and functional abnormality of heart. -continue Lasix 40 mg IV daily, monitor potassium and magnesium -continue aspirin 80 mg p.o. daily -continue metoprolol 50 mg succinate daily -continue lisinopril 5 mg p.o. daily. -prn nitroglycerin for chronic chest pain. -continue atorvastatin 40 mg p.o. daily. -PUD prophylaxis with famotidine 20 mg p.o. b.i.d. -DVT prophylaxis with enoxaparin 30 mg subQ daily Goals of care discussed greater than 24 minutes, full code status. Plan discussed with Dr. Milton Plan discussed with: Patient, Other My Orders Orders - MELISSA VALDIVIA RESIDENT Procedure Category Date Status Time Admit ADMIT 11/17/24 Transmitted 02:37 Nitroglycerin [facility] 11/17/24 Logged Sublingual (Ntrostat 02:45 Morphine Sulfate [facility] 11/17/24 Logged Injection 02:45 Oxygen By Nasal RT 11/17/24 Transmitted Cannula 02:37 Stat Ekg For Chest [facility] 11/17/24 In Process Pain 02:37 Notify Of Changes [facility] 11/17/24 In Process From Base 02:37 Tool Repair Technician For [facility] 11/17/24 In Process 24 Hours 02:37 Emergency Dysrhythmia [facility] 11/17/24 In Process Protocol 02:37 Rhythm Strips Once [facility] 11/17/24 In Process Every Shift 02:37 Electrocardigram EKG 11/17/24 Logged 02:37 Comprehensive LAB 11/17/24 Logged Metabolic Panel 04:00 B-Type Natriuretic LAB 11/17/24 Logged Peptide 02:37 Drug Screen LAB 11/17/24 Logged 02:37 Hemoglobin A1c LAB 11/17/24 Logged 02:37 Thyroid Stimulating LAB 11/17/24 Logged Hormone 02:37 Echo 2d Mode Cardiac US 11/17/24 Logged DOP 02:41 Furosemide Injection PHA 11/17/24 Logged (Lasix Injection) 02:45 Furosemide Injection PHA 11/18/24 Logged (Lasix Injection) 10:00 Magnesium LAB 11/17/24 Logged 02:41 Atorvastatin (Lipitor) PHA 11/17/24 Logged 22:00 Metoprolol Xl PHA 11/17/24 Logged Succinate (Toprol Xl) 02:45 Metoprolol Xl PHA 11/17/24 Logged Succinate (Toprol Xl) 10:00 Aspirin Tablet PHA 11/17/24 Logged 10:00 Lisinopril Tablet PHA 11/17/24 Logged (Zestril Tablet) 10:00 Famotidine Tablet [facility] 11/17/24 Logged (Pepcid Tablet) 10:00 Enoxaparin Sodium PHA 11/17/24 Logged (Lovenox) 10:00 Date of Service: Nov 17, 2024 Billing Provider: DOMINICK DEGROOT MD Common Visit Codes: 69261-YLQTMGE INP/OBS CARE (HIGH) Secondary Visit Codes: 00033-[id number] CARE PLAN 30 MINUTES MELISSA VALDIVIA RESIDENT Nov 17, 2024 02:47
[2024-11-17] MEDS: METOPROLOL SUCCINATE XL 50 MG TAB PO ONE (03:05)
[2024-11-17] MEDS: FUROSEMIDE 40 MG/4 ML VIAL IV ONE (03:34)
[2024-11-17 05:12] LABS: Alanine Aminotransferase 35 U/L (7-40); Alkaline Phosphatase 112 U/L (46-116); Anion Gap 11 (5-15); BUN/Creatinine Ratio 25.2 (10.0-20.0); Calcium 8.8 mg/dL (8.7-10.4); Carbon Dioxide 28 mmol/L (20-31); Chloride 102 mmol/L (98-107); Magnesium 1.9 mg/dL (1.6-2.6); Potassium 3.8 mmol/L (3.5-5.1); Sodium 141 mmol/L (136-145); Total Protein 7.2 g/dL (5.7-8.2)
[2024-11-17 05:13] LABS: Albumin 4.4 g/dL (3.2-4.8); Bilirubin, Total 0.5 mg/dL (0.2-1.0)
[2024-11-17 05:14] LABS: Blood Urea Nitrogen 26 mg/dL (9-23); Glucose 194 mg/dL (74-106)
--- NOTE | 2024-11-17 06:49 | ECG ---
[facility] Test Date: 2024-11-16 Test Time: 20:22:31 Pat Name: PAXTON RODRIGUEZ Department: [facility] ED Room: 0279T Gender: F Card Tender: SABINA : 1960 Requested By: YULISA COLON Order Number: [id number] Reading MD: Measurements Intervals [place] Rate: 100 P: 74 UT: 146 QRS: 100 QRSD: 98 T: 41 QT: 360 QTc: 465 Interpretive Statements Sinus tachycardia Ventricular bigeminy Right axis deviation Borderline T abnormalities, anterior leads Please click the below link to view image of tracing.
--- NOTE | 2024-11-17 06:49 | ECG ---
[facility] Test Date: 2024-11-17 Test Time: 00:14:43 Pat Name: PAXTON RODRIGUEZ Department: [facility] ED Patient ID: [id number] Room: 0279T Gender: F Towerman: : 1960 Requested By: MELISSA VALDIVIA Order Number: [id number] Reading MD: Measurements Intervals [place] Rate: 66 P: 70 PA: 161 QRS: 87 QRSD: 122 T: 65 QT: 474 QTc: 497 Interpretive Statements Sinus rhythm Atrial premature complex Nonspecific intraventricular conduction delay Please click the below link to view image of tracing.
[2024-11-17 09:18] LABS: Amphetamine Screen, Urine POSITIVE (NEGATIVE); Barbiturate Scree,Urine NEGATIVE (NEGATIVE); Benzodiazephine Screen, Urine NEGATIVE (NEGATIVE); Cannabinoid Screen, Urine NEGATIVE (NEGATIVE); Cocaine Screen, Urine NEGATIVE (NEGATIVE); Opiate Scree,Urine NEGATIVE (NEGATIVE); Phencyclidine Screen, Urine NEGATIVE (NEGATIVE)
[2024-11-17] MEDS: FAMOTIDINE 20 MG TAB PO SCH (09:22)
[2024-11-17] MEDS: METOPROLOL SUCCINATE XL 50 MG TAB PO SCH (09:23)
[2024-11-17] MEDS: ENOXAPARIN SOD 30 MG/0.3 ML SYRINGE SC SCH (09:23)
[2024-11-17] MEDS: LISINOPRIL 5 MG TAB PO SCH (09:24)
[2024-11-17] MEDS ORDERED: MORPHINE SULFATE 4 MG/ML SYR/VIAL IV PRN (11:15)
[2024-11-17] MEDS: HYDROcodone-ACET 5/325MG TAB PO PRN (11:21)
--- NOTE | 2024-11-17 11:40 | DVHINCON2 ---
Date Seen: Nov 17, 2024 Referring Physician MD Oralia Reason for Consultation Multivessel coronary artery disease History of Present Illness This is a 64-year-old female who presented to the emergency room with a chief complaint of right lower extremity pain. The patient complains of progressive right lower extremity pain and swelling since Monday morning for which she attended our emergency room undergoing a lower extremity venous ultrasound deemed to be negative for a DVT and positive for a Sanford's cyst to the right popliteal fossa. She also endorses experiencing a one time event of left-sided chest pain described as pressure/stabbing in nature, nonradiating, non provoked, and relieved after administration of NTG SL. She underwent multiple 12 lead electrocardiograms revealing a sinus rhythm with PVCs/PACs and no evidence of acute ST-T segment changes. Serial troponin levels are negative. Per patient, she underwent a cardiac catheterization without catheter based intervention at [facility] on December/2023. At that time, she was found with a SR. PRICING ANALYST of the "right side" and a lesion of approximately 50% to the "left side." Follows up in the outpatient setting with the primary waste machine offbearer in [place] with a scheduled follow-up appointment within the next couple of we eks. States she is on single-antiplatelet therapy and Lasix. Denies any other home medications. Significant medical history includes coronary artery disease, hypertension, dyslipidemia, prediabetes, methamphetamine abuse, nicotine dependence including 41 pack years, and obesity. Past Medical History Past medical history reviewed. No other significant than mentioned above. Past Surgical History Cholecystectomy Family History: Patient reports no known family medical history. Family History Family history reviewed. Social History States she quit tobacco 2.5 months ago. Total pack history x 41 years. States she quit methamphetamines. On methamphetamines since 29 y.o. UDS screen positive. Denies the use of alcohol. Allergies: Coded Allergies: No Known Drug Allergy (Verified Allergy, Unknown, 03/30/24) Home Meds Active Scripts Tramadol Hcl (Tramadol Hcl) 50 Mg Tab, 50 MG PO Q8HP PRN, #15 TAB Prov:YULISA COLON PAC 11/15/24 Reported Medications Atorvastatin Calcium (ATORVASTATIN CALCIUM) 40 Mg Tab, 1 TAB PO DAILY 05/31/24 Aspirin (Aspirin) 81 Mg Chw, 1 TAB PO DAILY 05/31/24 Fluoxetine Hcl (Fluoxetine Hcl) 10 Mg Cap, 10 MG PO DAILY for 30 Days, MG 05/30/24 Home Meds Home medications reviewed. Current Medications Current Medications Medications (Trade) Dose Ordered Sig/Michael Route PRN Reason Start Time Stop Time Status Last Admin Nitroglycerin (Ntrostat Sublingual) 0.4 mg Q5MINP PRN SL FOR CHEST PAIN 11/17/24 02:45 Morphine Sulfate 2 mg Q30M PRN IV FOR CHEST PAIN 11/17/24 02:45 11/17/24 11:12 DC Furosemide (Lasix Injection) 40 mg DAILY IV 11/18/24 10:00 Atorvastatin Calcium (Lipitor) 40 mg HS PO 11/17/24 22:00 Metoprolol Succinate (Toprol Xl) 50 mg DAILY PO 11/17/24 10:00 Aspirin 81 mg DAILY PO 11/17/24 10:00 11/17/24 09:22 Lisinopril (Zestril Tablet) 5 mg DAILY PO 11/17/24 10:00 Famotidine (Pepcid Tablet) 20 mg Q12HR PO 11/17/24 10:00 11/17/24 09:22 Enoxaparin Sodium (Lovenox) 30 mg DAILY SC 11/17/24 10:00 11/17/24 09:23 Acetaminophen/ Hydrocodone Bitart ([place] 5/325MG Tab) 1 tab Q6HPRN PRN PO MODERATE PAIN (4-6 PAIN SCALE) 11/17/24 11:15 Morphine Sulfate 2 mg Q30M PRN IV FOR CHEST PAIN 11/17/24 11:15 Review of Systems Constitutional: No symptom reported Ears, Nose, & Throat: No symptom reported Eyes: No symptom reported Neurological: No symptoms reported Pulmonary/Respiratory: No symptom reported Cardiovascular: Chest pain Gastrointestinal: No symptom reported Genitourinary: No symptom reported Musculoskeletal: RLE pain Skin: No symptom reported Psychiatric: No symptom reported Endocrine: No symptom reported Hemotologic/Lymphatic: No symptom reported Vital Signs Vital Signs Date Time Temp Pulse Resp B/P (MAP) Pulse Ox O2 Delivery O2 Flow Rate FiO2 11/17/24 09:24 90/52 11/17/24 09:23 64 11/17/24 09:00 98.2 18 93 98.2 11/17/24 05:03 Room Air* 0 21 Physical Exam General Appearance: Cooperative. Well developed. Well nourished. In no acute distress Head Exam: Normal inspection Neck Exam: Normal inspection. Non-tender. Normal alignment Pulmonary/Respiratory: Chest non-tender. Clear bilateral breath sounds Cardiovascular/Chest: Regular rate and rhythm. S1, S2. Sinus rhythm with PACs/PVCs. No murmurs. No JVD. Peripheral Pulses: 2+ Radial (R). 2+ Radial (L). 2+ Pedal (R). 2+ Pedal (L) Abdominal Exam: Normal bowel sounds. Soft. Ankle Exam: Negative ankle edema Lower extremities: Right lower extremity edema, nonpitting Neuro/Mental Status: A&O x4. Coherent Thoughts/Psych: Normal thought pattern. Appropriate mood and affect. Good judgement and insight Appearance: In no acute distress Skin Exam: Normal inspection. Normal color. Warm. Dry Labs/Diagnostic Data Labs Test 11/17/24 04:30 11/16/24 19:23 11/16/24 18:21 11/16/24 16:27 Range/Units Sodium Level 141 136-145 mmol/L Potassium Level 3.8 3.5-5.1 mmol/L Chloride Level 102 98-107 mmol/L Carbon Dioxide Level 28 20-31 mmol/L Anion Gap 11 5-15 Blood Urea Nitrogen 26 H 9-23 mg/dL Creatinine 1.03 H 0.550-1.02 mg/dL Glomerular Filtration Rate Calc 61 >90 mL/min BUN/Creatinine Ratio 25.2 H 10.0-20.0 Serum Glucose 194 H 74-106 mg/dL Hemoglobin A1c 5.8 H <5.7 % A1C Calcium Level 8.8 8.7-10.4 mg/dL Magnesium Level 1.9 1.6-2.6 mg/dL Total Bilirubin 0.5 0.2-1.0 mg/dL Aspartate Amino Transferase (AST) 54 H 13-40 U/L Alanine Aminotransferase (ALT) 35 7-40 U/L Alkaline Phosphatase 112 46-116 U/L B-Type Natriuretic Peptide 48.17 0-100 pg/mL Total Protein 7.2 5.7-8.2 g/dL Albumin 4.4 3.2-4.8 g/dL Thyroid Stimulating Hormone (TSH) 1.77 0.55-4.78 uIU/mL Troponin I High Sensitivity 15 </=34 ng/L Urine Color Yellow Yellow Urine Clarity Clear Clear Urine pH 5.0 5.0-9.0 Urine Specific [place] 1.023 1.001-1.035 Urine Protein Trace H Negative Urine Ketones Negative Negative Urine Blood Negative Negative /uL Urine Nitrite Negative Negative Urine Bilirubin Negative Negative Urine Urobilinogen Normal Negative mg/dL Urine Leukocyte Esterase 3+ Negative /uL Urine RBC 3 0 - 4 /hpf Urine Microscopic WBC 47 H 0-5 /HPF Urine Squamous Epithelial Cells Few <5 /hpf Urine Bacteria Few H None Seen /hpf Urine Hyaline Casts Few 0 - 2 /lpf Urine Mucus Few None Seen Urine Glucose Normal Normal mg/dL Urine Opiates Screen Negative NEGATIVE Urine Fentanyl Screen Negative NEGATIVE Urine Barbiturates Screen Negative NEGATIVE Urine Phencyclidine Screen Negative NEGATIVE Urine Amphetamines Screen Positive NEGATIVE Urine Benzodiazepines Screen Negative NEGATIVE Urine Cocaine Screen Negative NEGATIVE Urine Cannabinoids Screen Negative NEGATIVE White Blood Count 10.2 4.4-10.8 10^3/uL Red Blood Count 4.03 4.0-5.20 10^6/uL Hemoglobin 12.7 12.2-16.2 g/dL Hematocrit 36.9 # 36.0-46.0 % Mean Corpuscular Volume 91.7 80.0-100.0 fL Mean Corpuscular Hemoglobin 31.5 28.0-32.0 pg Mean Corpuscular Hemoglobin Concent 34.4 32.0-36.0 g/dL Red Cell Distribution Width 14.0 11.8-14.3 % Platelet Count 224 140-450 10^3/uL Mean Platelet Volume 8.4 6.9-10.8 fL Neutrophils (%) (Auto) 71.9 37.0-80.0 % Lymphocytes (%) (Auto) 19.1 10.0-50.0 % Monocytes (%) (Auto) 7.5 0.0-12.0 % Eosinophils (%) (Auto) 0.6 0.0-7.0 % Basophils (%) (Auto) 0.9 0.0-2.0 % Neutrophils # (Auto) 7.3 1.6-8.6 10 ^3/uL Lymphocytes # (Auto) 2.0 0.4-5.4 10 ^3/uL Monocytes # (Auto) 0.8 0-1.3 10 ^3/uL Eosinophils # (Auto) 0.1 0-0.8 10 ^3/uL Basophils # (Auto) 0.1 0-0.2 10 ^3/uL Nucleated Red Blood Cells 0.1 % D-Dimer, Quantitative 0.60 H 0.0-0.49 mg/L FEU Assessment Severe coronary artery disease Hypertension Dyslipidemia Prediabetes Methamphetamines/nicotine dependence Medical noncompliance Obesity Plan/Recommendation (Dr. Aleman) Patient underwent a recent transthoracic echocardiogram revealing a LVEF of 55% with normal RV function and no severe valve abnormalities noted. She underwent a recent coronary angiogram without catheter based intervention with reported findings appearing to be a SR. PRICING ANALYST to the RCA and a 50% lesion to the LAD vs LCx. Recommendations are to continue single-antiplatelet therapy, lipid lowering ag ent, and beta-mely. Strongly counseled on medical compliance, methamphetamine and cigarette use cessation. Follow up with primary waste machine offbearer as scheduled within the next couple of weeks. There is no further cardiac workup indicated at this time. Kindly call if in need of further recommendations. Thank you for allowing us to participate in this patient's care. This medical document was created using an electronic medical record system with voice recognition software and computerized dictation system. Although this document has been carefully reviewed, there might still be some phonetic and typographical errors. Occasional wrong-word or ``sound-alike substitutions may have occurred due to the inherent limitations of voice recognition software. These areas are purely typographical due to imperfections of the software programs and do not reflect any compromise in the patient's medical care. Please read the chart carefully and recognize, using context, where these substitutions have occurred. Plan discussed with: Patient, Other NYHA Physical activity limitations: NA Date of Service: Nov 17, 2024 Billing Provider: JETHRO DIAMOND Cardiology Common Codes: [id number] INP/OBS CARE (High) JETHRO DIAMOND Nov 17, 2024 11:39
[2024-11-17] MEDS: NICOTINE 14 MG/24HR TOPICAL PATCH TD ONE (12:20)
--- NOTE | 2024-11-17 12:39 | DVHPN2 ---
Subjective Continues to have right calf pain Reviewed: Care Plan, H&P, Labs, Medications Changes from previous H/P or p: No Changes General: Per HPI Eyes: No Pain, No Vision change, No Conjunctivae inflammation, No Eyelid inflammation, No Other, No Redness ENT: No Ear pain, No Ear discharge, No Nose pain, No Nose discharge, No Nose congestion, No Mouth pain, No Mouth swelling, No Throat pain, No Throat swelling, No Other Cardiovascular: No Chest Pain, No Palpitations, No Orthopnea, No Paroxysmal Noc. Dyspnea, No Edema, No Lt Headedness, No Other Respiratory: No Cough, No Dry, No Shortness of breath, No SOB with excertion, No Wheezing, No Hemoptysis, No Pleuritic Pain, No Sputum, No Other Gastrointestinal: No Nausea, No Vomiting, No Abdominal Pain, No Diarrhea, No Constipation, No Melena, No Hematochezia, No Other Genitourinary: No Dysuria, No Frequency, No Incontinence, No Hematuria, No Retention, No Other Musculoskeletal: leg pain Skin: No Rash, No Lesions, No Jaundice, No Bruising, No Other Objective Vitals Vital Signs Date Time Temp Pulse Resp B/P (MAP) Pulse Ox O2 Delivery O2 Flow Rate FiO2 11/17/24 09:24 90/52 11/17/24 09:23 64 11/17/24 09:00 98.2 18 93 98.2 11/17/24 08:00 Room Air* 0 21 General Appearance: Alert, Oriented X3, Cooperative, mild distress HEENT: Atraumatic, PERRLA Cardiovascular: Normal S1, Normal S2 Genitourinary: No Apparent Abnormalities Musculoskeletal: Normal sensory function, Normal motor function Skin: Dry, Intact Psych/Mental Status: Mental status NL, Mood NL Medications Current Medications Medications Dose Ordered Sig/Michael Route Start Time Stop Time Status Last Admin Dose Admin Nitroglycerin 0.4 mg Q5MINP PRN SL 11/17/24 02:45 Atorvastatin Calcium 40 mg HS PO 11/17/24 22:00 Aspirin 81 mg DAILY PO 11/17/24 10:11/17/24 09:22 81 MG Famotidine 20 mg Q12HR PO 11/17/24 10:00 11/17/24 09:22 20 MG Enoxaparin Sodium 30 mg DAILY SC 11/17/24 10:11/17/24 09:23 30 MG Acetaminophen/ Hydrocodone Bitart 1 tab Q6HPRN PRN PO 11/17/24 11:15 11/17/24 11:21 1 TAB Morphine Sulfate 2 mg Q30M PRN IV 11/17/24 11:15 Metoprolol Succinate 25 mg DAILY PO 11/18/24 10:00 Nicotine 1 patch DAILY TD 11/18/24 10:00 Laboratory Results Laboratory Tests 11/16/24 16:27 11/17/24 04:30 Chemistry Test 11/16/24 16:27 11/17/24 04:30 Calcium Level 9.2 mg/dL (8.7-10.4) 8.8 mg/dL (8.7-10.4) Albumin 4.4 g/dL (3.2-4.8) Magnesium Level 1.9 mg/dL (1.6-2.6) Total Protein 7.2 g/dL (5.7-8.2) Coagulation Test 11/16/24 16:27 D-Dimer, Quantitative 0.60 mg/L FEU (0.0-0.49) H Cardiac Markers Test 11/17/24 04:30 B-Type Natriuretic Peptide 48.17 pg/mL (0-100) LFT Test 11/17/24 04:30 Alanine Aminotransferase (ALT) 35 U/L (7-40) Alkaline Phosphatase 112 U/L (46-116) Aspartate Amino Transferase (AST) 54 U/L (13-40) H Total Bilirubin 0.5 mg/dL (0.2-1.0) HgA1c, TSH Test 11/17/24 04:30 Hemoglobin A1c 5.8 % A1C (<5.7) H Thyroid Stimulating Hormone (TSH) 1.77 uIU/mL (0.55-4.78) Urinalysis Test 11/16/24 18:21 Urine Color Yellow (Yellow) Urine Clarity Clear (Clear) Urine pH 5.0 (5.0-9.0) Urine Specific [place] 1.023 (1.001-1.035) Urine Protein Trace (Negative) H Urine Ketones Negative (Negative) Urine Blood Negative /uL (Negative) Urine Nitrite Negative (Negative) Urine Bilirubin Negative (Negative) Urine Urobilinogen Normal mg/dL (Negative) Urine Leukocyte Esterase 3+ /uL (Negative) Urine RBC 3 /hpf (0 - 4) Urine Microscopic WBC 47 /HPF (0-5) H Urine Squamous Epithelial Cells Few /hpf (<5) Urine Bacteria Few /hpf (None Seen) H Urine Hyaline Casts Few /lpf (0 - 2) Urine Mucus Few (None Seen) Urine Glucose Normal mg/dL (Normal) Labs and/or images reviewed: Labs reviewed by me, Image(s) reviewed by me Assessment/Plan Assessment/Plan Impression: -DVT ruled out -right calf sprain -methamphetamine use -coronary artery disease -obesity Plan: -range of motion to right lower extremity -warm compress to right lower extremity -NSAIDs for pain -re-evaluate for discharge in a.m. -cardiology consultation: Patient cleared from their standpoint Total time spent with patient discussing and formulating plan of care: 35 minutes. This medical document was created using an electronic medical record system with Rangespan dictation system. Although this document has been carefully reviewed, there may still be some phonetic and typographical errors. These areas are purely typographical due to imperfections of the software programs, and do not reflect any compromise in the patient's medical care. Plan discussed with: Patient, Other (RN) My Orders Orders - CRISPIN JOLLEY NP Procedure Category Date Status Time Hydrocodone-Acet PHA 11/17/24 In Process 5/325mg Tab ([place] 11:15 Date of Service: Nov 17, 2024 Billing Provider: CRISPIN JOLLEY NP Common Visit Codes: [id number] INP/OBS CARE(HIGH) CRISPIN JOLLEY NP Nov 17, 2024 12:39
--- NOTE | 2024-11-17 14:49 | DVHSR ---
APPROVED REPORT EXAM: Two-dimensional and M-mode echocardiogram with Doppler and color Doppler. Blood Pressure: 108/70 mmHg INDICATION CHF RISK FACTORS Height: 5' 1", Weight: 177 DIMENSIONS LVDd5.5 (3.8-5.7cm)LA (2D)4.0 (1.9-4.0cm)Aortic Root3.0 (2.0-3.7cm) LVDs3.4 (2.5-4.0cm)LA (MM) (1.9-4.0cm)Aortic Cusp Exc1.6 (1.5-2.0cm) EF (%) 68.0 (55-70%)Rt. Atrium3.6 (1.9-4.0cm)Asc. Aorta cm IVSd1.0 (0.7-1.1cm)RV (D) (1.8-2.4cm) PWd0.9 (0.7-1.1cm) Mitral Valve MitralMitral Stenosis E wave1.00m/sMV Mean GR.mmHg A wave0.90m/sMV Peak GR.mmHg E/A ratio1.12D MVAcm2 Aortic Valve Aortic ValveAortic Stenosis V11.10m/Nancy Mean GR.5mmHg V21.50m/Nancy Peak GR.9mmHg LVOT Diameter2.1 (1.8-2.4cm)Doppler AVA2.54cm2 Pulmonic Valve V20.90m/s Conclusion NORMAL LV EF AND IS 70% NORMAL VALVES NO EFFUSION NORMAL RV FUNCTION
[2024-11-17] MEDS: ATORVASTATIN 20 MG TAB PO SCH (21:38)
[2024-11-17] MEDS: IBUPROFEN 400 MG TAB PO PRN (21:38)
--- NOTE | 2024-11-17 23:32 | DVHINCON2 ---
Date Seen: Nov 17, 2024 Referring Physician MD Oralia Reason for Consultation Multivessel coronary artery disease History of Present Illness This is a 64-year-old female with a past medical history of coronary artery disease, hypertension, dyslipidemia, prediabetes, methamphetamine abuse, nicoti ne dependence including 41 pack years, and obesity who presented to the emergency room with chief complaint of right lower extremity pain. The patient complains of progressive right lower extremity pain and swelling since Monday morning for which she attended our emergency room undergoing a lower extremity venous ultrasound deemed to be negative for a DVT and positive for a Sanford's cyst to the right popliteal fossa. She also endorses experiencing a one time event of left-sided chest pain described as pressure/stabbing in nature, nonradiating, non provoked, and relieved after administration of NTG SL. She underwent multiple 12 lead electrocardiograms revealing a sinus rhythm with PVCs/PACs and no evidence of acute ST-T segment changes. Serial troponin levels are negative. Per patient, she underwent a cardiac catheterization without catheter based intervention at [facility] on December/2023. At that time, she was found with a TOY ELECTRIC TRAIN REPAIRER of the "right side" and a lesion of approximately 50% to the "left side." Follows up in the outpatient setting with the primary decker operator in [place] with a scheduled follow-up appointment within the next couple of weeks. States she is on single- antiplatelet therapy and Lasix. Denies any other home medications. Chest x-ray showed NAD. Patient was admitted to the hospital. I am asked to consult on this patient. Past Medical History Past medical history reviewed. No other significant than mentioned above. Past Surgical History Cholecystectomy Family History: Patient reports no known family medical history. Allergies: Coded Allergies: No Known Drug Allergy (Verified Allergy, Unknown, 03/30/24) Home Meds Active Scripts Tramadol Hcl (Tramadol Hcl) 50 Mg Tab, 50 MG PO Q8HP PRN, #15 TAB Prov:YULISA COLON PAC 11/15/24 Reported Medications Atorvastatin Calcium (ATORVASTATIN CALCIUM) 40 Mg Tab, 1 TAB PO DAILY 05/31/24 Aspirin (Aspirin) 81 Mg Chw, 1 TAB PO DAILY 05/31/24 Fluoxetine Hcl (Fluoxetine Hcl) 10 Mg Cap, 10 MG PO DAILY for 30 Days, MG 05/30/24 Current Medications Current Medications Medications (Trade) Dose Ordered Sig/Michael Route PRN Reason Start Time Stop Time Status Last Admin Nitroglycerin (Ntrostat Sublingual) 0.4 mg Q5MINP PRN SL FOR CHEST PAIN 11/17/24 02:45 Morphine Sulfate 2 mg Q30M PRN IV FOR CHEST PAIN 11/17/24 02:45 11/17/24 11:12 DC Furosemide (Lasix Injection) 40 mg DAILY IV 11/18/24 10:00 11/17/24 11:37 DC Atorvastatin Calcium (Lipitor) 40 mg HS PO 11/17/24 22:00 Metoprolol Succinate (Toprol Xl) 50 mg DAILY PO 11/17/24 10:00 11/17/24 11:37 DC Aspirin 81 mg DAILY PO 11/17/24 10:00 11/17/24 09:22 Lisinopril (Zestril Tablet) 5 mg DAILY PO 11/17/24 10:00 11/17/24 11:37 DC Famotidine (Pepcid Tablet) 20 mg Q12HR PO 11/17/24 10:00 11/17/24 09:22 Enoxaparin Sodium (Lovenox) 30 mg DAILY SC 11/17/24 10:00 11/17/24 09:23 Acetaminophen/ Hydrocodone Bitart ([place] 5/325MG Tab) 1 tab Q6HPRN PRN PO MODERATE PAIN (4-6 PAIN SCALE) 11/17/24 11:15 11/17/24 12:37 DC 11/17/24 11:21 Morphine Sulfate 2 mg Q30M PRN IV FOR CHEST PAIN 11/17/24 11:15 Metoprolol Succinate (Toprol Xl) 25 mg DAILY PO 11/18/24 10:00 Nicotine (Nicoderm 14MG/ 24HR) 1 patch DAILY TD 11/18/24 10:00 Ibuprofen (Motrin Tablet) 400 mg Q8HP PRN PO MODERATE PAIN (4-6 PAIN SCALE) 11/17/24 12:45 Review of Systems Constitutional: No symptom reported Ears, Nose, & Throat: No symptom reported Eyes: No symptom reported Neurological: No symptoms reported Pulmonary/Respiratory: No symptom reported Cardiovascular: Chest pain Gastrointestinal: No symptom reported Genitourinary: No symptom reported Musculoskeletal: RLE pain Skin: No symptom reported Psychiatric: No symptom reported Endocrine: No symptom reported Hemotologic/Lymphatic: No symptom reported Vital Signs Vital Signs Date Time Temp Pulse Resp B/P (MAP) Pulse Ox O2 Delivery O2 Flow Rate FiO2 11/17/24 13:03 98.2 64 16 94/60 (71) 91 98.2 11/17/24 08:00 Room Air* 0 21 Physical Exam GENERAL: Alert and oriented x 3. No acute distress. Obese. EYES: PERRL, EOMI. Anicteric. HENT: Moist mucous membranes. LUNGS: Clear to auscultation bilaterally. CARDIOVASCULAR: Regular rate and rhythm. ABDOMEN: Soft, nontender and nondistended. EXTREMITIES: No edema. NEUROLOGIC: No focal neurological deficits. SKIN: Warm, dry. Labs/Diagnostic Data Labs Test 11/17/24 04:30 11/16/24 19:23 11/16/24 18:21 11/16/24 16:27 Range/Units Sodium Level 141 136-145 mmol/L Potassium Level 3.8 3.5-5.1 mmol/L Chloride Level 102 98-107 mmol/L Carbon Dioxide Level 28 20-31 mmol/L Anion Gap 11 5-15 Blood Urea Nitrogen 26 H 9-23 mg/dL Creatinine 1.03 H 0.550-1.02 mg/dL Glomerular Filtration Rate Calc 61 >90 mL/min BUN/Creatinine Ratio 25.2 H 10.0-20.0 Serum Glucose 194 H 74-106 mg/dL Hemoglobin A1c 5.8 H <5.7 % A1C Calcium Level 8.8 8.7-10.4 mg/dL Magnesium Level 1.9 1.6-2.6 mg/dL Total Bilirubin 0.5 0.2-1.0 mg/dL Aspartate Amino Transferase (AST) 54 H 13-40 U/L Alanine Aminotransferase (ALT) 35 7-40 U/L Alkaline Phosphatase 112 46-116 U/L B-Type Natriuretic Peptide 48.17 0-100 pg/mL Total Protein 7.2 5.7-8.2 g/dL Albumin 4.4 3.2-4.8 g/dL Thyroid Stimulating Hormone (TSH) 1.77 0.55-4.78 uIU/mL Troponin I High Sensitivity 15 </=34 ng/L Urine Color Yellow Yellow Urine Clarity Clear Clear Urine pH 5.0 5.0-9.0 Urine Specific [place] 1.023 1.001-1.035 Urine Protein Trace H Negative Urine Ketones Negative Negative Urine Blood Negative Negative /uL Urine Nitrite Negative Negative Urine Bilirubin Negative Negative Urine Urobilinogen Normal Negative mg/dL Urine Leukocyte Esterase 3+ Negative /uL Urine RBC 3 0 - 4 /hpf Urine Microscopic WBC 47 H 0-5 /HPF Urine Squamous Epithelial Cells Few <5 /hpf Urine Bacteria Few H None Seen /hpf Urine Hyaline Casts Few 0 - 2 /lpf Urine Mucus Few None Seen Urine Glucose Normal Normal mg/dL Urine Opiates Screen Negative NEGATIVE Urine Fentanyl Screen Negative NEGATIVE Urine Barbiturates Screen Negative NEGATIVE Urine Phencyclidine Screen Negative NEGATIVE Urine Amphetamines Screen Positive NEGATIVE Urine Benzodiazepines Screen Negative NEGATIVE Urine Cocaine Screen Negative NEGATIVE Urine Cannabinoids Screen Negative NEGATIVE White Blood Count 10.2 4.4-10.8 10^3/uL Red Blood Count 4.03 4.0-5.20 10^6/uL Hemoglobin 12.7 12.2-16.2 g/dL Hematocrit 36.9 # 36.0-46.0 % Mean Corpuscular Volume 91.7 80.0-100.0 fL Mean Corpuscular Hemoglobin 31.5 28.0-32.0 pg Mean Corpuscular Hemoglobin Concent 34.4 32.0-36.0 g/dL Red Cell Distribution Width 14.0 11.8-14.3 % Platelet Count 224 140-450 10^3/uL Mean Platelet Volume 8.4 6.9-10.8 fL Neutrophils (%) (Auto) 71.9 37.0-80.0 % Lymphocytes (%) (Auto) 19.1 10.0-50.0 % Monocytes (%) (Auto) 7.5 0.0-12.0 % Eosinophils (%) (Auto) 0.6 0.0-7.0 % Basophils (%) (Auto) 0.9 0.0-2.0 % Neutrophils # (Auto) 7.3 1.6-8.6 10 ^3/uL Lymphocytes # (Auto) 2.0 0.4-5.4 10 ^3/uL Monocytes # (Auto) 0.8 0-1.3 10 ^3/uL Eosinophils # (Auto) 0.1 0-0.8 10 ^3/uL Basophils # (Auto) 0.1 0-0.2 10 ^3/uL Nucleated Red Blood Cells 0.1 % D-Dimer, Quantitative 0.60 H 0.0-0.49 mg/L FEU Assessment Severe coronary artery disease. Hypertension. Dyslipidemia. Prediabetes. Methamphetamines/nicotine dependence. Medical noncompliance. Obesity. Plan/Recommendation I agree with your ongoing assessment and care of plan. Patient has been seen by Lupe Guerrero NP on my behalf, her and I discussed the plan with the patient. Patient underwent a recent transthoracic echocardiogram revealing a LVEF of 55% with normal RV function and no severe valve abnormalities noted. She underwent a recent coronary angiogram without catheter based intervention with reported findings appearing to be a TOY ELECTRIC TRAIN REPAIRER to the RCA and a 50% lesion to the LAD vs LCx. Recommendations are to continue single-antiplatelet therapy, lipid lowering agent, and beta-mely. Strongly counseled on medical compliance, methamphetamine and cigarette use cessation. Follow up with primary decker operator as scheduled within the next couple of weeks. There is no further cardiac workup indicated at this time. Additional plan as per the hospital course. Plan discussed with: Patient NYHA Physical activity limitations: NA Date of Service: Nov 17, 2024 Billing Provider: OSKAR PAYNE MD Cardiology Common Codes: [id number] INP/OBS CARE (High) Cardiology Consultation Codes: [id number] CONSULT <45MIN OSKAR PAYNE MD Nov 17, 2024 14:50
[2024-11-18 01:00] VITALS: BP 112/71; PULSE 67; RESP 18; TEMP 98; O2SAT 94
[2024-11-18] MEDS ORDERED: FURO40TA4 PO (01:38)
[2024-11-18 05:00] VITALS: BP 110/69; PULSE 72; RESP 18; TEMP 97.5; O2SAT 95
[2024-11-18] MEDS ORDERED: FUROSEMIDE 40 MG/4 ML VIAL IV PRN (06:00)
[2024-11-18 08:00] VITALS: PULSE 69; PULSE 80; RESP 12; O2SAT 93
--- NOTE | 2024-11-18 08:39 | DVHDS2 ---
Discharge Summary Date of Admission Nov 17, 2024 at 02:37 Date of Discharge: Nov 18, 2024 Admitting Diagnosis Right lower extremity pain Labs/Diagnostic Data: Laboratory Results Test 11/17/24 04:30 11/16/24 19:23 11/16/24 18:21 11/16/24 16:27 Sodium Level 141 mmol/L (136-145) Potassium Level 3.8 mmol/L (3.5-5.1) Chloride Level 102 mmol/L (98-107) Carbon Dioxide Level 28 mmol/L (20-31) Anion Gap 11 (5-15) Blood Urea Nitrogen 26 mg/dL (9-23) Creatinine 1.03 mg/dL (0.550-1.02) Glomerular Filtration Rate Calc 61 mL/min (>90) BUN/Creatinine Ratio 25.2 (10.0-20.0) Serum Glucose 194 mg/dL (74-106) Hemoglobin A1c 5.8 % A1C (<5.7) Calcium Level 8.8 mg/dL (8.7-10.4) Magnesium Level 1.9 mg/dL (1.6-2.6) Total Bilirubin 0.5 mg/dL (0.2-1.0) Aspartate Amino Transferase (AST) 54 U/L (13-40) Alanine Aminotransferase (ALT) 35 U/L (7-40) Alkaline Phosphatase 112 U/L (46-116) B-Type Natriuretic Peptide 48.17 pg/mL (0-100) Total Protein 7.2 g/dL (5.7-8.2) Albumin 4.4 g/dL (3.2-4.8) Thyroid Stimulating Hormone (TSH) 1.77 uIU/mL (0.55-4.78) Troponin I High Sensitivity 15 ng/L (</=34) Urine Color Yellow (Yellow) Urine Clarity Clear (Clear) Urine pH 5.0 (5.0-9.0) Urine Specific [place] 1.023 (1.001-1.035) Urine Protein Trace (Negative) Urine Ketones Negative (Negative) Urine Blood Negative /uL (Negative) Urine Nitrite Negative (Negative) Urine Bilirubin Negative (Negative) Urine Urobilinogen Normal mg/dL (Negative) Urine Leukocyte Esterase 3+ /uL (Negative) Urine RBC 3 /hpf (0 - 4) Urine Microscopic WBC 47 /HPF (0-5) Urine Squamous Epithelial Cells Few /hpf (<5) Urine Bacteria Few /hpf (None Seen) Urine Hyaline Casts Few /lpf (0 - 2) Urine Mucus Few (None Seen) Urine Glucose Normal mg/dL (Normal) Urine Opiates Screen Negative (NEGATIVE) Urine Fentanyl Screen Negative (NEGATIVE) Urine Barbiturates Screen Negative (NEGATIVE) Urine Phencyclidine Screen Negative (NEGATIVE) Urine Amphetamines Screen Positive (NEGATIVE) Urine Benzodiazepines Screen Negative (NEGATIVE) Urine Cocaine Screen Negative (NEGATIVE) Urine Cannabinoids Screen Negative (NEGATIVE) White Blood Count 10.2 10^3/uL (4.4-10.8) Red Blood Count 4.03 10^6/uL (4.0-5.20) Hemoglobin 12.7 g/dL (12.2-16.2) Hematocrit 36.9 % (36.0-46.0) Mean Corpuscular Volume 91.7 fL (80.0-100.0) Mean Corpuscular Hemoglobin 31.5 pg (28.0-32.0) Mean Corpuscular Hemoglobin Concent 34.4 g/dL (32.0-36.0) Red Cell Distribution Width 14.0 % (11.8-14.3) Platelet Count 224 10^3/uL (140-450) Mean Platelet Volume 8.4 fL (6.9-10.8) Neutrophils (%) (Auto) 71.9 % (37.0-80.0) Lymphocytes (%) (Auto) 19.1 % (10.0-50.0) Monocytes (%) (Auto) 7.5 % (0.0-12.0) Eosinophils (%) (Auto) 0.6 % (0.0-7.0) Basophils (%) (Auto) 0.9 % (0.0-2.0) Neutrophils # (Auto) 7.3 10 ^3/uL (1.6-8.6) Lymphocytes # (Auto) 2.0 10 ^3/uL (0.4-5.4) Monocytes # (Auto) 0.8 10 ^3/uL (0-1.3) Eosinophils # (Auto) 0.1 10 ^3/uL (0-0.8) Basophils # (Auto) 0.1 10 ^3/uL (0-0.2) Nucleated Red Blood Cells 0.1 % D-Dimer, Quantitative 0.60 mg/L FEU (0.0-0.49) Other Laboratory Tests 11/17/24 04:30 11/16/24 16:27 Brief Hx & Hospital Course: History of Present Illness Patient is 64-year-old female who came to the hospital with a chief complaint of right-sided lower extremity swelling, calf pain. As per patient right-sided lower extremity swelling extended till mid thigh, was visited emergency department one day ago where she was told that she has Sanford's cyst but no clot in the right lower extremity. However patient continued to have severe right lower extremity swelling with pain associated with mild chest pain which is pressure-like in nature, chronic, comes at rest, worsened with exertion. Patient had one year ago hospitalization has a [facility] where she underwent coronary angiogram and was told that she has 100% RCA occlusion and 40-50% in left coronary artery. No stent intervention was done at that point and advised with meth amphetamine abuse cessation and continue medical management and follow with primary care physician and seismograph helper. However patient is noncompliant and did not took the medication which was prescribed. Again patient came back with chronic chest pain, substernal, 5/10, comes at rest, worsened with exertion, nonradiating. Course of hospitalization: Patient was started on p.o. Motrin for pain. Cardiology consultation was obtained. Patient has been cleared for discharge from their standpoint. Discussion made with the patient regarding findings on ultrasound of right lower extremity. Patient also found to be positive for amphetamines. Discussion made regarding patient's home medications and illicit drug use. Patient denies using illicit drugs. Medication review was performed regarding previous prescriptions in the past six months. Patient has probable underlying psychiatric disorder given prescription for olanzapine, hydroxyzine, and fluoxetine, for which she denies. Patient was instructed to continue all of her home medications, take the tramadol that was prescribed by the ER provider with alteration of Motrin for pain. He is instructed to follow up with her primary care provider, psychiatrist, as well as seismograph helper. Physical examination General: Alert and Oriented x3. No acute distress. Well-nourished. Eyes: EOMI. Anicteric. HENT: Moist mucous membranes. Lungs: Clear to auscultation bilaterally. No accessory muscle use. Cardiovascular: Regular rate and rhythm. No murmur. No JVD. Abdomen: Soft, non-tender and non-distended. No palpable masses. Extremities: No edema. Non-tender. Skin: No rashes or lesions. Warm. Neurologic: No focal neurological deficits. CN II-XII grossly intact, but not individually tested. Psychiatric: Cooperative. Appropriate mood and affect. Total time spent with patient discussing and formulating plan of care: 35 minutes. This medical document was created using an electronic medical record system with [employer] dictation system. Although this document has been carefully reviewed, there may still be some phonetic and typographical errors. These areas are purely typographical due to imperfections of the software programs, and do not reflect any compromise in the patient's medical care. Consults/Reason for consult Cardiology: History of coronary artery disease Condition at Discharge: Guarded Final Diagnosis/Problems List Right leg pain secondary to Sanford's cyst -DVT ruled out -right calf sprain -methamphetamine use -coronary artery disease -obesity -probable underlying psychiatric disorder Discharge Disposition: Home Discharge Instruct/Medications Diet: Cardiac 2g Na,low cholest Activity: No Restrictions, As Tolerated Follow Up/Referral: Follow up with PCP and primary seismograph helper as an outpatient Medications: [id number] Motrin for pain Continue all previous home medications Scheduled Aspirin (Aspirin), 1 TAB PO DAILY, (Reported) Atorvastatin Calcium (Atorvastatin Calcium), 1 TAB PO DAILY, (Reported) Fluoxetine Hcl (Fluoxetine Hcl), 10 MG PO DAILY, (Reported) Furosemide (Furosemide), 40 MG PO DAILY, (Reported) Scheduled PRN Tramadol Hcl (Tramadol Hcl), 50 MG PO Q8HP PRN 36 Discharge Statement: "Patient was advised to return to the ER or call 911 if any headaches, dizziness, shortness of breath, chest pain, abdominal pain, bleeding, fevers, or worsening of medical condition. Patient was counseled about treatment plan, medications, possible side effects, patientverbalized understanding. All questions were answered to the best of my ability. This discharge took greater then 30 minutes in planning, reviewing documentation, counseling the patient, and discussing with other team members." ASSESSMENT ASSESSMENT Assessment Right leg pain secondary to Sanford's cyst Date of Service: Nov 18, 2024 Billing Provider: CRISPIN JOLLEY NP Common Visit Codes: 61000-[id number] INP/OBS CARE(HIGH) CRISPIN JOLLEY NP Nov 18, 2024 08:39
[2024-11-18 09:00] VITALS: BP 125/62; PULSE 80; RESP 12; TEMP 98.4; O2SAT 92
[2024-11-18] MEDS ORDERED: FUROSEMIDE 40 MG/4 ML VIAL IV SCH (10:00)
[2024-11-18] MEDS: NICOTINE 14 MG/24HR TOPICAL PATCH TD SCH (10:00)
[2024-11-18] MEDS: METOPROLOL SUCCINATE XL 50 MG TAB PO SCH (10:06)
[2024-11-18 11:09] VITALS: BP 125/62; PULSE 80; RESP 12; TEMP 98.4; O2SAT 93
--- NOTE | 2024-11-18 23:56 | DVHPN2 ---
Progress Note - Dictate Date Seen: Nov 18, 2024 Medical Necessity Reason Pt with a Central, PICC or Fol: No Subjective Patient was seen and evaluated in follow up. No overnight events. Patient underwent a recent transthoracic echocardiogram revealing a LVEF of 55% with normal RV function and no severe valve abnormalities noted. Patient is cardiac stable for discharge. Telemetry reviewed. vital signs Vital Sign Date Time Temp Pulse Resp B/P (MAP) Pulse Ox O2 Delivery O2 Flow Rate FiO2 11/18/24 11:09 98.4 80 12 93 11/18/24 10:06 125/62 11/18/24 08:00 Room Air* 0 21 Total Intake and Output 11/17/24 11/17/24 11/18/24 15:00 23:00 07:00 Intake Total 90 ml 800 ml Balance 90 ml 800 ml objective GENERAL: Alert and oriented x 3. No acute distress. Obese. EYES: PERRL, EOMI. Anicteric. HENT: Moist mucous membranes. LUNGS: Clear to auscultation bilaterally. CARDIOVASCULAR: Regular rate and rhythm. ABDOMEN: Soft, nontender and nondistended. EXTREMITIES: No edema. NEUROLOGIC: No focal neurological deficits. SKIN: Warm, dry. laboratory and microbiology Laboratory Tests 11/17/24 04:30 11/16/24 16:27 Test 11/17/24 04:30 Range/Units Serum Glucose 194 H 74-106 mg/dL Problem List Severe coronary artery disease. Hypertension. Dyslipidemia. Prediabetes. Methamphetamines/nicotine dependence. Medical noncompliance. Obesity. Assessment/Plan Continued all current supportive medical care. Metoprolol. Diuretics with Lasix. Lipitor. Morphine for pain. Aspirin. Additional plan as per the hospital course. Plan discussed with: Patient OSKAR PAYNE MD Nov 18, 2024 23:56
== END 2024-11-18 12:40 | disposition home or self-care (01) | DRG 351 ==
LOC: ER 15:53 → OVERFLOW 11-17 02:37 → TELE-WESTW 11-17 04:59
PROVIDERS: ADMIT Nurse Practitioner Acute Care; ATTEND Nurse Practitioner Acute Care
DX: M71.21 Synovial cyst of popliteal space [Baker], right knee (principal); I13.0 Hypertensive heart and chronic kidney disease with heart failure and stage 1 through stage 4 chronic kidney disease, or unspecified chronic kidney disease; I50.9 Heart failure, unspecified; N17.9 Acute kidney failure, unspecified; E66.9 Obesity, unspecified; N18.31 Chronic kidney disease, stage 3a; I25.118 Atherosclerotic heart disease of native coronary artery with other forms of angina pectoris; Z68.33 Body mass index [BMI] 33.0-33.9, adult; I25.5 Ischemic cardiomyopathy; E78.5 Hyperlipidemia, unspecified; R73.03 Prediabetes; Q63.1 Lobulated, fused and horseshoe kidney; N39.0 Urinary tract infection, site not specified; F41.9 Anxiety disorder, unspecified; G89.29 Other chronic pain; F17.210 Nicotine dependence, cigarettes, uncomplicated; F15.90 Other stimulant use, unspecified, uncomplicated; F99 Mental disorder, not otherwise specified; S86.811A Strain of other muscle(s) and tendon(s) at lower leg level, right leg, initial encounter; I25.2 Old myocardial infarction; Z91.199 Patient's noncompliance with other medical treatment and regimen due to unspecified reason; Z83.3 Family history of diabetes mellitus; Z82.49 Family history of ischemic heart disease and other diseases of the circulatory system; Z79.899 Other long term (current) drug therapy; Z90.89 Acquired absence of other organs; X58.XXXA Exposure to other specified factors, initial encounter; Y93.89 Activity, other specified; Y92.89 Other specified places as the place of occurrence of the external cause; Y99.8 Other external cause status
CPT/HCPCS: 36415; 71045; 80048; 80053; 80307; 81001; 83036; 83735; 83880; 84443; 84484; 85025; 85379; 93005; 93306; 96372; G0378; J0696